=== PATIENT | female | born 1975 | race Caucasian/White ===

== ENCOUNTER 2021-02-14 15:19 | Emergency (ER) | payer BC, MEDICARE, SELFPAY ==
[2021-02-14 15:36] VITALS: BP 95/68; PULSE 87; RESP 16; TEMP 35.7; O2SAT 97
--- NOTE | 2021-02-14 16:19 | ED.GENADULT ---
HPI - General Adult General Chief complaint: Dental/Oral Stated complaint: dizziness Source: patient Mode of arrival: ambulatory Limitations: no limitations History of Present Illness HPI narrative: Patient presents for evaluation of right lower dental pain since yesterday. She had a dental extraction performed 3 days ago. She reports swelling in her gumline. She denies any fever, chills, nausea, vomiting. She tried calling her dentist and was unable to get an appointment due to the holiday. She already has percocet at home for chronic neck pain. She is requesting an antibiotic. Pain is constant, throbbing, 8/10 in severity. No trismus or problems handling secretions. Related Data Home Medications Medication Instructions Recorded Confirmed duloxetine 30 mg capsule,delayed 30 mg PO DAILY 04/18/19 02/14/21 release hydrochlorothiazide 12.5 mg tablet 12.5 mg PO DAILY 04/18/19 02/14/21 metoprolol tartrate 25 mg tablet 25 mg PO BID tablet 04/18/19 02/14/21 oxycodone 5 mg tablet 5 mg PO Q8H PRN 10/31/19 02/14/21 tapentadol 50 mg tablet 50 mg PO TID 10/31/19 02/14/21 Allergies Allergy/AdvReac Type Severity Reaction Status Date / Time droperidol Allergy Mild Unknown Verified 02/14/21 16:07 prochlorperazine Allergy Mild Unknown Verified 02/14/21 16:07 Sulfa (Sulfonamide Allergy Mild Unknown Verified 02/14/21 16:07 Antibiotics) oxymorphone Allergy Unknown Confusion Verified 02/14/21 16:07 Review of Systems Review of Systems: CONSTITUTIONAL: Denies fever, chills, or sweats. EYES: Denies visual changes, redness, or discharge. ENT: Reports right lower dental pain. Denies rhinorrhea, congestion, sore throat, or otalgia. CARDIOVASCULAR: Denies chest pain, palpitations, or edema. RESPIRATORY: Denies cough or dyspnea. GASTROINTESTINAL: Denies abdominal pain, nausea, vomiting, or diarrhea. GENITOURINARY: Denies dysuria or hematuria. SKIN: Denies rash or itching. MUSCULOSKELETAL: Denies back pain, joint pain, or myalgia. NEUROLOGIC: Denies headache, numbness, dizziness, or weakness. PSYCHIATRIC: Denies anxiety or depression. PMFSH Past Medical History Medical History (Updated 02/14/21 @ 16:23 by Natanael Willams, [facility], ) Adrenal insufficiency Anemia Asthma Cervical disc disease Hypertension IBS (irritable bowel syndrome) Surgical History Surgical History H/O knee surgery S/P insertion of spinal cord stimulator Family History Family History Mother Patient's mother is , Onset Age: 33 Other Carcinoma of colon Family history of malignant neoplasm of breast in first degree relative Family history of polycystic kidney disease Hypertension Social History Social History Smoking status: Never smoker Second hand tobacco smoke exposure: No Alcohol intake: never Exam Narrative: GENERAL: Well-appearing, well-nourished, and in no acute distress. HEAD: Normocephalic, atraumatic. EYES: PERRLA and EOMI. ENT: Nares clear, no rhinorrhea or epistaxis. Mucous membranes moist. Oropharynx without tonsillar hypertrophy exudate or other lesions. Multiple absent teeth. There is swelling in gumline of site of tooth #28. TMs pearly ortiz nonbulging NECK: Supple. No adenopathy or masses. No carotid bruits or JVD CHEST: Clear to auscultation. No respiratory distress. No wheezes rales or rhonchi HEART: Regular rate and rhythm. No murmur heard. Normal peripheral pulses. ABDOMEN: Soft, nontender, nondistended, normal active bowel sounds. EXTREMITIES: Normal range of motion. No edema. SKIN: Warm, dry, no rash. NEURO: No focal deficits. Alert and oriented x3. PSYCH: Normal mood and affect. Course Course Emergency Course: Is a 45-year-old female who presented with complaints of right lower dental pain. She has swellin
== END 2021-02-14 16:35 | disposition home or self-care (01) ==
PROVIDERS: Emergency Provider Nurse Practitioner; PCP Family Medicine
DX: K08.409 Partial loss of teeth, unspecified cause, unspecified class (principal); I10 Essential (primary) hypertension
CPT/HCPCS: 99213; G0463

== ENCOUNTER 2021-02-18 05:26 | Inpatient (IN) | payer BC, MEDICARE, SELFPAY ==
[2021-02-18] VITALS (61 sets, daily range): BP systolic 88–128; BP diastolic 42–114; PULSE 56–92; RESP 3–24; TEMP 36.6–37.9; O2SAT 85–99; BMI 27.1
--- NOTE | ~2021-02-18 | CT_ITS ---
EXAMINATION: CTA chest PE protocol DATE: 02/19/2021 16:19 INDICATION: Hypoxia. Elevated d-dimer. TECHNIQUE: Computed tomography (CT) pulmonary angiogram of the chest was performed with 100 mL Omnipa que-350 intravenous contrast. Additional 3D reconstructions utilizing coronal maximum intensity proje ction (MIP) were performed. The dose-length product was 278.55 mGy-cm. COMPARISON: None FINDINGS: Excellent contrast opacification of the pulmonary arteries. There is moderate streak artifact from de nse contrast in the superior vena cava and right atrium. Mild scattered respiratory motion artifact. No pulmonary embolism. There are scattered peripheral predominant patchy groundglass opacities throug hout both lungs with appearance suspicious for COVID pneumonia. No pulmonary edema or pleural effusio n. Heart size is normal. No pericardial effusion. Thoracic aorta is normal in caliber with no dissect ion. Cholecystectomy clips at the gallbladder fossa. Multiple surgical clips at the base of the right neck. Spinal stimulator lead which extends into the central canal the upper thoracic spine and exten ds cephalad along the posterior aspect of the cervical central canal beyond the cephalad-most image. Moderate to severe upper thoracic and lower thoracic predominant spondylosis. IMPRESSION: 1. No pulmonary embolism. 2. Bilateral patchy airspace opacities throughout both lungs with appearance suspicious for COVID pne umonia. Reviewed, dictated and finalized at location B. TRACER IMPRESSION: 1. No pulmonary embolism. 2. Bilateral patchy airspace opacities throughout both lungs with appearance phelps spicious for COVID pneumonia.
--- NOTE | ~2021-02-18 | CT_ITS ---
EXAMINATION: CT brain wo con DATE: 02/18/2021 06:40 INDICATION: Increased confusion TECHNIQUE: Computed tomography (CT) of the head was performed without intravenous contrast. The mA wa s adjusted according to patient size. Iterative reconstruction technique was employed. Exam dose: 60 5.33 mGy-cm total exam DLP. COMPARISON: 02/03/2011 CT brain FINDINGS: No intracranial mass lesion or hemorrhage or cerebrovascular accident. No midline shift or mass effect effect. Normal ventricular size. No subdural or epidural hematoma. There is mild focal mucoperiosteal thickening of the sphenoid sinuses, mainly on the left and mild so ft tissue thickening of some of the ethmoid septa. The paranasal sinuses and mastoid air cells are ot herwise unremarkable. No fracture or bone destruction of the cranial vault. IMPRESSION: No significant intracranial abnormality Reviewed, dictated and finalized at Location A. Reviewed, dictated and finalized at location A. RVISOR FUR FLOOR WORKER
--- NOTE | ~2021-02-18 | XR_ITS ---
XR chest 1V portable DATE: 02/18/2021 06:41 INDICATION: Altered mental state, stupor TECHNIQUE: Portable AP chest on 02/18/2021 at 0636 hours COMPARISON: 01/30/2017 two-view chest FINDINGS: Lower anterior cervical spine surgical fusion. Overlie the lower right cervical soft tissue s. Battery pack overlies the left upper abdomen with lead extending over the cervical spine area. Normal heart size. No pulmonary infiltrate or consolidation, pleural effusion or pulmonary vascular c ongestion or pneumothorax is detected. IMPRESSION: No active cardiopulmonary disease Reviewed, dictated and finalized at location A. ROL CLERK [employer]OD AND BEVERAGE
[2021-02-18 05:38] LABS: Glucose Point of Care 137 mg/dl (65-105)
--- NOTE | 2021-02-18 05:38 | ECG_ITS ---
Measurements Intervals [place] Rate: 88 P: 39 NM: 153 QRS: 9 QRSD: 100 T: 18 QT: 347 QTc: 420 Interpretive Statements SINUS RHYTHM INCOMPLETE RIGHT BUNDLE BRANCH BLOCK VOLTAGE CRITERIA FOR LVH BORDERLINE ST-T WAVE ABNORMALITY- ANT/INF LEADS BASELINE ARTIFACT- I, III, AVR, AVL, AVF BORDERLINE ECG Electronically Signed On 02-18-2021 16:18:02 LEAD RADIOLOGIC TECHNOLOGIST by Mikal George D.O.
[2021-02-18 06:11] LABS: INR 0.9; Lactic Acid Reflex 1.2 mmol/L (0.7-2.1); Prothrombin Time 12.2 Seconds (11.1-14.7)
[2021-02-18 06:12] LABS: Add Urine Microscopic? YES; Appearance Urine Clear (Clear); Bilirubin Urine Negative (Negative); Blood Urine Negative (Negative); Color Urine Yellow (Yellow); Glucose Urine UA Negative (Negative); Ketones Urine Negative (Negative); Leukocyte Esterase Ur Negative LEU/UL (Negative); Mucus Urine Rare /lpf; Nitrate Urine Negative (Negative); Partial Thromboplastin Time 32.6 SECONDS (22.3-36.8); Protein Urine 1+ mg/dL (Negative); RBC Urine 0-2 /hpf (0-2); Specific Grav Ur 1.015 (1.001-1.035); Squamous Epithelial Cell Urine Rare /hpf (Few); WBC Urine 0-3 /hpf
--- NOTE | 2021-02-18 06:21 | PC.NURSE ---
Pt on room air and O2 consistently dropping to 86%, repositioned patient. Pt remains in 80's. Pt placed on 2 L NC O2 at this time.
[2021-02-18 06:23] LABS: Basophils Percent Auto 0.4 % (0.2-1.2); Eosinophils Percent Auto 0.4 % (0-4.4); Hematocrit 36.8 % (37.0-47.0); Hemoglobin 11.9 g/dL (12.0-15.0); Immature Granulocyte Absolute 0.02 K/mm3 (0.00-0.031); Immature Granulocyte Percent A 0.8 % (0-0.5); Lymphocytes Percent Auto 32.1 % (18.3-44.2); Mean Corpuscular HGB Conc 32.3 g/dl (32-36); Mean Corpuscular Hemoglobin 30.1 pg (26-34); Mean Corpuscular Volume 93.2 fl (80-100); Mean Platelet Volume 12.1 fl (7.4-10.4); Monocytes Absolute Auto 0.1 K/mm3 (0.1-0.6); Monocytes Percent Auto 3.6 % (2.6-8.5); Neutrophils Absolute Auto 1.6 K/mm3 (1.3-6.7); Neutrophils Percent Auto 62.7 % (45.5-73.1); Platelet Count Result 156 k/mm3 (150-375); Red Blood Count 3.95 M/mm3 (4.2-5.4); Red Cell Distribution Width 11.8 % (11.5-14.5); White Blood Count 2.5 K/mm3 (4.5-10.0)
[2021-02-18 06:31] LABS: Alanine Aminotransferase 47 U/L (4-35); Albumin Level 3.9 g/dL (3.5-5.1); Alkaline Phosphatase 154 U/L (38-126); Anion Gap 6 mmol/L (8-16); Aspartate Amino Transferase 62 U/L (14-36); Bilirubin,Total 0.7 mg/dL (0.2-1.3); Blood Urea Nitrogen 21 mg/dL (7-17); Calcium 7.9 mg/dL (8.4-10.2); Carbon Dioxide 36 mmol/L (22-30); Chloride 94 mmol/L (98-107); Estimated CRCL calculation 68 ml/min; Estimated Glomerular Filt Rate > 60; Glucose 117 mg/dL (65-110); Potassium 3.2 mmol/L (3.4-5.0); Sodium 136 mmol/L (137-145)
--- NOTE | 2021-02-18 06:37 | PC.NURSE ---
Pt to CT scan via stretcher at this time.
[2021-02-18 06:42] LABS: Ethanol < 10 mg/dL (<10)
[2021-02-18] MEDS: SODIUM CHLORIDE 0.9% IV 1,000 ML 999 ML IV CONT (06:43)
[2021-02-18] MEDS: ACETAMINOPHEN 325 MG TABLET 650 MG PO (06:43)
[2021-02-18 06:45] LABS: Platelet Estimate Adequate (Adequate)
[2021-02-18 06:46] LABS: Atypical Lymphocytes Present; Large Platelets Present
--- NOTE | 2021-02-18 07:00 | ED.AMS ---
HPI - Altered Mental Status General Chief Complaint: Altered Mental Status Stated Complaint: possible covid exposure, increase confusion Time Seen by Provider: 02/18/21 07:00 Source: patient and EMS Mode of arrival: EMS Limitations: no limitations History of Present Illness HPI narrative: Patient is a 45-year-old female brought in by EMS due to fever, confusion x1 day. According to the patient, she had positive sick contacts, people in her household has had URI symptoms for the past few days. Patient denies being vaccinated from Covid. Patient denies any speech or visual disturbance, neck pain or stiffness, chest pain, shortness of breath, abdominal pain, urinary symptoms, nausea, vomiting or diarrhea. Patient's oxygen saturation was in the low 80s upon arrival. Related Data Home Medications Medication Instructions Recorded Confirmed duloxetine 30 mg capsule,delayed 30 mg PO DAILY 04/18/19 02/14/21 release hydrochlorothiazide 12.5 mg tablet 12.5 mg PO DAILY 04/18/19 02/14/21 metoprolol tartrate 25 mg tablet 25 mg PO BID tablet 04/18/19 02/14/21 oxycodone 5 mg tablet 5 mg PO Q8H PRN 10/31/19 02/14/21 tapentadol 50 mg tablet 50 mg PO TID 10/31/19 02/14/21 baclofen mg 02/18/21 ergocalciferol (vitamin D2) 02/18/21 ergocalciferol (vitamin D2) 02/18/21 hydrochlorothiazide 02/18/21 levothyroxine 02/18/21 meloxicam 02/18/21 methocarbamol mg 02/18/21 pregabalin 02/18/21 tapentadol [Nucynta ER] mg PO 02/18/21 trazodone 02/18/21 Allergies Allergy/AdvReac Type Severity Reaction Status Date / Time droperidol Allergy Mild Unknown Verified 02/18/21 05:40 prochlorperazine Allergy Mild Unknown Verified 02/18/21 05:40 Sulfa (Sulfonamide Allergy Mild Unknown Verified 02/18/21 05:40 Antibiotics) oxymorphone Allergy Unknown Confusion Verified 02/18/21 05:40 Review of Systems Review of Systems: All systems reviewed & are unremarkable except as noted in HPI and below Constitutional: Constitutional: Denies body ache(s), Denies excessive sweating, Denies fatigue, Denies headache(s), Denies lethargy, Denies malaise, Denies weakness and Denies weight loss Eyes: Eyes: Denies blurry vision, Denies change in vision and Denies loss of vision ENT: Denies dizziness, Denies ear discharge, Denies headache(s), Denies lip swelling, Denies epistaxis, Denies nasal congestion, Denies neck pain, Denies throat swelling and Denies tongue swelling Cardiovascular: Cardiovascular: Denies chest pain, Denies chest pain at rest, Denies chest pain with activity, Denies diaphoresis, Denies rapid heart rate, Denies edema, Denies irregular heart rhythm, Denies lightheadedness, Denies palpitations, Denies dyspnea and Denies dyspnea on exertion Respiratory: Respiratory: Denies chest congestion, Denies cough, Denies hemoptysis, Denies dyspnea and Denies dyspnea on exertion Gastrointestinal: Gastrointestinal: Denies abdominal pain, Denies melena, Denies hematochezia, Denies diarrhea, Denies nausea, Denies vomiting and Denies hematemesis Musculoskeletal: Musculoskeletal: Denies abnormal gait, Denies deformity, Denies joint swelling, Denies limited range of motion, Denies neck pain and Denies numbness Neurologic: Denies Abnormal speech present, Denies abnormal gait, Denies confusion, Denies dizziness, Denies headache(s), Denies focal weakness, Denies loss of vision, Denies numbness, Denies Other visual disturbances, Denies Sensory deficit (Neuro) and Denies weakness Psychiatric: Psychiatric: Denies confusion, Denies depression, Denies auditory hallucinations, Denies homicidal ideation and Denies suicidal ideation Endocrine: Endocrine: Denies cold intolerance, Denies excessive sweating, Denies fatigue, Denies heat intolerance and Denies palpitations Hematologic/Lymphatic: Hematologic/Lymphatic: Denies easy bleeding and Denies easy bruising Allergic/Immunologic: Allergic/Immunologic: Denies lip swelling, Denies throat swelling and Denies tongue swelling
[2021-02-18 07:05] LABS: EDCOVIDSCREEN Positive (Negative)
[2021-02-18 07:11] LABS: Alveolar/Arterial O2 Gradient 70.1 mmHg; Base Excess ABG 1.4 mEq/l (+/-2.0); Carboxyhemoglobin 0.3 % THb (0-2.0); Fractional Inspired Oxygen 32 %; Methemoglobin ABG 0.2 %THb (0-1.5); Oxygen Content ABG 14.9 %vol (16.0-22.0); Oxygen Saturation ABG 98.1 % (95.0-100.0); Oxyhemoglobin 96.3 % THb (90.0-100.0); PCO2 ABG 41.1 mmHg (35.0-45.0); PO2 FiO2 Ratio Arterial Blood 3.44 %; Reduced Hemoglobin 3.2 %THb (0-5.0); Total Hemoglobin 10.9 g/dL (12.0-18.0); pH ABG 7.419 (7.350-7.450)
[2021-02-18 07:12] LABS: Device NASAL CANNULA; Modified Allen's Test Pass; Site Drawn LEFT RADIAL
[2021-02-18 08:32] LABS: D Dimer 0.62 ug/mL (<0.48)
[2021-02-18 09:44] LABS: Amphetamine Screen Urine Negative (Negative); Barbiturate Screen Urine Negative (Negative); Benzodiazepines Screen Urine Negative (Negative); Cannabinoid Screen Urine Negative (Negative); Cocaine Screen Urine Negative (Negative); Methadone Screen Urine Negative (Negative); Opiate Screen Urine Positive (Negative); Phencyclidine Screen Urine Negative (Negative)
--- NOTE | 2021-02-18 11:46 | PM.IMHP ---
H&P: HPI History of Present Illness Date/Time: 02/18/21 11:46 Patient is a 45-year-old female with past medical history of hypertension, adrenal insufficiency, hypothyroidism, chronic neck pain with nerve stimulator, insomnia who presents to ED with complaints of confusion. Patient had symptom onset a week ago, 3 members in her household have been positive for COVID-19. This morning she did not know where she was, her confusion appears to have resolved on my evaluation. Patient is on significant pain medications and muscle relaxers. She was not vaccinated for COVID-19. She did not have COVID-19 in the past. In the ED: Patient was COVID-19 positive, patient has acute hypoxic respiratory failure O2 saturation 80s on room air. CBC showed leukopenia WBC 2.5. ABG shows PO2 98 on nasal cannula, unreported oxygen L. UDS positive for opiates which she is prescribed. UA negative. Potassium at 3.2. Chief Complaint: confusion Review of Systems Review of Systems: Constitutional: No Fever, No Chills, No Night Sweats, No Fatigue, No Malaise ENT/Mouth: No Hearing Changes, No Ear Pain, No Nasal Congestion, No Sinus Pain, No Hoarseness, No sore throat, No Rhinorrhea, No Swallowing Difficulty Eyes: No Eye Pain, No Redness, No Vision Changes Cardiovascular: No Chest Pain, No Palpitations, No Dyspnea on Exertion, No Orthopnea, No Claudication, No Edema Respiratory: No Cough, No Sputum, No Wheezing, No Shortness of Breath Gastrointestinal: No Nausea, No Vomiting, No Diarrhea, No Constipation, No Abdominal Pain, No Heartburn, No Hematochezia, No Melena Genitourinary: No Dysuria, No Urinary Frequency, No Hematuria, No Urinary Incontinence, No Urgency Musculoskeletal: No Arthralgias, No Myalgias, No Joint Swelling, No Joint Stiffness, No Back Pain Skin: No Skin Lesions, No Pruritis, No Hair Changes Neuro: Endorses confusion, weakness. No Numbness, No Paresthesias, No Loss of Consciousness, No Syncope, No Dizziness, No Headache Psych: No Anxiety/Panic, No Depression, No Insomnia Heme: No Bruising, No Bleeding Lymph: No Adenopathy Endocrine: No Polyuria, No Polydipsia, No Temperature Intolerance PMFSH Past Medical History Medical History Adrenal insufficiency Anemia Asthma Cervical disc disease Hypertension IBS (irritable bowel syndrome) Surgical History Surgical History H/O knee surgery S/P insertion of spinal cord stimulator Family History Family History (Updated 02/18/21 @ 16:40 by Josefina Granger DO) Mother Patient's mother is , Onset Age: 33 Family history of polycystic kidney disease Other Carcinoma of colon Family history of malignant neoplasm of breast in first degree relative Hypertension Social History Social History Smoking status: Never smoker Second hand tobacco smoke exposure: No Alcohol intake: never Substance use: never Substance use type: does not use Spiritual care concerns: No Meds Home Medications and Allergies Home Medications Medication Instructions Recorded Confirmed Type dicyclomine 10 mg capsule 10 mg PO TID #90 cap 04/02/19 02/18/21 Rx duloxetine 30 mg capsule,delayed 30 mg PO DAILY 04/18/19 02/18/21 History release bupropion HCl 150 mg 24 hr tablet, 150 mg PO QAM #30 tablet 09/15/20 02/18/21 Rx extended release ergocalciferol (vitamin D2) 1,250 50,000 unit PO WEEKLY #12 cap 12/10/20 02/18/21 Rx mcg (50,000 unit) capsule montelukast 10 mg tablet 10 mg PO DAILY #90 tablet 01/02/21 02/18/21 Rx penicillin V potassium 500 mg PO Q6H #40 tablet 02/14/21 02/18/21 Rx baclofen 20 mg PO TID 02/18/21 02/18/21 History cetirizine 10 mg PO DAILY 02/18/21 02/18/21 History hydrochlorothiazide 25 mg PO BID 02/18/21 02/18/21 History levothyroxine 100 mcg PO DAILY 02/18/21 02/18/21 H
--- NOTE | 2021-02-18 14:14 | PC.NURSE ---
Patient admitted - being boarded in ED.
--- NOTE | 2021-02-18 14:54 | PC.NURSE ---
called to give nurse to nurse report. nurse will call back for report.
--- NOTE | 2021-02-18 15:22 | ADMGEN ---
This patient, Diane Wise, was admitted to 3 [facility] Surg Room 310-01. Patient/family oriented to hospital policies and general routines including ID bracelet, bed and alarms, visiting hours, pain management, procedures, bathroom and other care routines, personal items, smoking policy, room service/diet, and visiting hours. Information on how to activate the Rapid Response Team has been discussed. Patient/Family are encouraged to report perceived risks to care and to ask questions if they do not understand what they are told or what they should do.
[2021-02-18] MEDS: REMDESIVIR 200 MG/NS 250 ML 200 MG/250 ML BAG 250 MG IVPB (18:09)
[2021-02-18] MEDS: POTASSIUM CHLORIDE INJ 40 MEQ in SODIUM CHLORIDE 0.9% IV 500 ML 130 MEQ IVPB (20:59)
[2021-02-18] MEDS: DICYCLOMINE HCL 10 MG CAPSULE PO (21:00)
[2021-02-18] MEDS: BACLOFEN 10 MG TABLET 20 MG PO (21:00)
[2021-02-18] MEDS: methocarbamoL 500 MG TABLET PO (21:03)
[2021-02-18] MEDS: MELOXICAM 7.5 MG TABLET PO (21:03)
[2021-02-18] MEDS: PREGABALIN (*CRX) 75 MG CAPSULE 150 MG PO (21:04)
[2021-02-18] MEDS: METOPROLOL TARTRATE 50 MG TAB PO (21:04)
[2021-02-18] MEDS: MONTELUKAST SODIUM 10 MG TABLET PO (21:04)
[2021-02-18] MEDS: traZODone HCL 50 MG TABLET PO (21:05)
[2021-02-18] MEDS: oxyCODONE/ACETAMINOPHEN (*CRX) 5-325 MG TABLET 1 TABLET PO (21:39)
[2021-02-19] VITALS: BP 109/54; PULSE 60; RESP 20; TEMP 36.1; O2SAT 95
[2021-02-19 04:00] VITALS: BP 115/79; PULSE 62; RESP 18; TEMP 36.4; O2SAT 93
[2021-02-19] MEDS: LEVOTHYROXINE SODIUM 100 MCG TABLET PO (05:33)
[2021-02-19 07:08] LABS: Basophils Percent Auto 0.2 % (0.2-1.2); Hemoglobin 10.9 g/dL (12.0-15.0); Immature Granulocyte Absolute 0.02 K/mm3 (0.00-0.031); Immature Granulocyte Percent A 0.5 % (0-0.5); Lymphocytes Absolute Auto 0.76 K/mm3 (0.9-3.2); Lymphocytes Percent Auto 18.6 % (18.3-44.2); Mean Corpuscular Hemoglobin 30.4 pg (26-34); Mean Corpuscular Volume 91.9 fl (80-100); Mean Platelet Volume 11.5 fl (7.4-10.4); Monocytes Absolute Auto 0.2 K/mm3 (0.1-0.6); Monocytes Percent Auto 4.7 % (2.6-8.5); Neutrophils Absolute Auto 3.1 K/mm3 (1.3-6.7); Platelet Count Result 143 k/mm3 (150-375); Red Blood Count 3.59 M/mm3 (4.2-5.4); Red Cell Distribution Width 11.6 % (11.5-14.5); White Blood Count 4.1 K/mm3 (4.5-10.0)
[2021-02-19 07:37] LABS: Alanine Aminotransferase 38 U/L (4-35); Albumin Level 3.4 g/dL (3.5-5.1); Alkaline Phosphatase 150 U/L (38-126); Anion Gap 9 mmol/L (8-16); Aspartate Amino Transferase 46 U/L (14-36); Bilirubin,Total 0.3 mg/dL (0.2-1.3); Blood Urea Nitrogen 14 mg/dL (7-17); Calcium 7.9 mg/dL (8.4-10.2); Carbon Dioxide 29 mmol/L (22-30); Chloride 102 mmol/L (98-107); Estimated CRCL calculation 104 ml/min; Estimated Glomerular Filt Rate > 60; Glucose 119 mg/dL (65-110); Potassium 2.9 mmol/L (3.4-5.0); Sodium 140 mmol/L (137-145)
[2021-02-19 08:00] VITALS: BP 101/67; PULSE 71; RESP 15; TEMP 36.6; O2SAT 94
[2021-02-19] MEDS: DULoxetine HCL 60 MG CAPSULE.DR PO (09:03)
[2021-02-19] MEDS: buPROPion HCL XL (24 HR) 150 MG TABCR PO (09:03)
[2021-02-19] MEDS: hydroCHLOROthiazide 25 MG TABLET PO (09:04)
[2021-02-19] MEDS: methocarbamoL 500 MG TABLET PO ×2 (09:04→15:23)
[2021-02-19] MEDS: PREGABALIN (*CRX) 75 MG CAPSULE 150 MG PO ×2 (09:04→15:22)
[2021-02-19] MEDS: BACLOFEN 10 MG TABLET 20 MG PO ×2 (09:04→15:23)
[2021-02-19] MEDS: MELOXICAM 7.5 MG TABLET PO (09:04)
[2021-02-19] MEDS: DULoxetine HCL 30 MG CAPSULE.DR PO (09:04)
[2021-02-19 09:05] VITALS: PULSE 62
[2021-02-19] MEDS: LORATADINE 10 MG TABLET PO (09:05)
[2021-02-19] MEDS: DICYCLOMINE HCL 10 MG CAPSULE PO (09:05)
[2021-02-19] MEDS: METOPROLOL TARTRATE 50 MG TAB PO (09:05)
[2021-02-19] MEDS: ENOXAPARIN 40 MG/0.4 ML SYRINGE SUB-Q (09:06)
[2021-02-19] MEDS: oxyCODONE/ACETAMINOPHEN (*CRX) 5-325 MG TABLET 1 TABLET PO ×2 (09:14→15:30)
[2021-02-19 10:29] LABS: INR 0.9; Prothrombin Time 12.5 Seconds (11.1-14.7)
[2021-02-19] MEDS: KCL 20 MEQ/SW 100 ML 100 ML 50 MEQ IVPB (11:48)
[2021-02-19 12:00] VITALS: BP 111/67; PULSE 62; RESP 14; TEMP 36.3; O2SAT 96
[2021-02-19] MEDS: POTASSIUM CHLORIDE 20 MEQ PACKET (FOR LIQUID) 40 MEQ PO (13:26)
[2021-02-19] MEDS: SODIUM CHLORIDE 0.9% IV 250 ML 100 ML IV CONT (13:29)
[2021-02-19] MEDS: PANTOPRAZOLE 40 MG TABLET PO (15:23)
[2021-02-19 16:58] LABS: Potassium 3.8 mmol/L (3.4-5.0)
--- NOTE | 2021-02-19 17:00 | PM.DS ---
DS: Admitting Diagnosis Discharge Date 02/19/2021 Admitting Diagnosis Confusion DS: Discharge Diagnosis Discharge Diagnosis (1) Pneumonia due to COVID-19 virus: Code(s): U07.1 - COVID-19; J12.82 - Pneumonia due to coronavirus disease 2019 Status: Acute (2) Hypokalemia: Code(s): E87.6 - Hypokalemia Status: Acute (3) Hypertension: Code(s): I10 - Essential (primary) hypertension Status: Acute (4) Asthma: Code(s): J45.909 - Unspecified asthma, uncomplicated Status: Acute (5) Adrenal insufficiency: Code(s): E27.40 - Unspecified adrenocortical insufficiency Status: Acute (6) Cervical disc disease: Code(s): M50.90 - Cervical disc disorder, unspecified, unspecified cervical region Status: Acute (7) S/P insertion of spinal cord stimulator: Code(s): Z96.89 - Presence of other specified functional implants Status: Acute DS: Summary Hospital Course Reason for hospitalization: 45-year-old female with past medical history of hypertension, adrenal insufficiency, hypothyroidism, chronic neck pain with nerve stimulator, insomnia who presents to ED with complaints of confusion. Patient had symptom onset a week ago, 3 members in her household have been positive for COVID-19. This morning she did not know where she was, her confusion appears to have resolved on my evaluation. Patient is on significant pain medications and muscle relaxers. She was not vaccinated for COVID-19. She did not have COVID-19 in the past. Please see H&P for details Hospital Course: In the ED, patient was COVID-19 positive with acute hypoxic respiratory failure O2 saturation 80s on room air. CBC showed leukopenia WBC 2.5. ABG shows PO2 98 on nasal cannula, unreported oxygen L. UDS positive for opiates which she is prescribed. UA negative. Potassium at 3.2. Chest x-ray was clear. Brain CT showed no significant intracranial abnormalities. CTA of the chest showed no PE but did show bilateral patchy airspace opacities throughout both lungs suspicious for COVID. White count improved. Potassium dropped to 2.9 and this had to be replaced again. LFTs were mildly elevated but improving on repeat testing. Suspected this is related to COVID. Blood pressure was low at times felt related to her hydrochlorothiazide. Was also felt that this was the etiology of her hypokalemia. She was treated with IV fluids with improvement. She was started on remdesivir and dexamethasone but she easily came off oxygen and thus these medications were not continued. She has a minimal cough. She denies any shortness of breath, chest pain or dyspnea on exertion. She was off oxygen since yesterday. She feels ready for discharge. She overall did well discharged home on 02/19/2021 Status at Discharge Cognitive/behavioral status at discharge: Stable Time Spent with Patient Time attestation: Total time spent providing and/or coordinating discharge services: 35 minutes Time spent: Greater than 30 minutes Exam Narrative: AF 97.4 111/67 62 14 96% RA Gen - NARD Chest - L>R inspiratory crackles, nml RR CV - RRR S1/S2 Abd - soft, NT/ND, +BS Ext - no pedal edema Neuro - nonfocal Skin - warm and dry DS: Data Data Completed and Pending Labs on day of discharge: Labs from last 24 hours 02/19/21 02/19/21 02/19/21 16:32 08:38 06:49 WBC RBC Hgb Hct MCV MCH MCHC RDW Plt Count MPV Immature Gran % (Auto) Neut % (Auto) Lymph % (Auto) [place] % (Auto) Eos % (Auto) Baso % (Auto) Lymph # (Auto) [place] # (Auto) Eos # (Auto) Baso # (Auto) Abs Immat Gran (auto) Absolute Neuts (auto) Absolute Nucleated RBC Nucleated RBC % PT 12.5 INR 0.9 Sodium 140 Potassium 3.8 2.9 L Chloride 102 Carbon Dioxide 29 Anion Gap 9 BUN 14 D Creatinine 0.50 L Estim Creat Clear Calc 104 Estimated GFR > 6
[2021-02-19 17:08] VITALS: BP 102/67; PULSE 62; RESP 16; TEMP 36.2; O2SAT 98
== END 2021-02-19 18:34 | disposition home or self-care (01) | DRG 177 ==
LOC: ANHED 07:17 → ANH3MEDSUR 12:14
PROVIDERS: Emergency Medicine; Student in an Organized Health Care Education/Training Program; Admitting Provider Family Medicine; Emergency Provider Emergency Medicine; PCP Family Medicine; Visit Provider Internal Medicine
DX: U07.1 COVID-19 (principal); J12.82 Pneumonia due to coronavirus disease 2019; J96.01 Acute respiratory failure with hypoxia; G93.41 Metabolic encephalopathy; E27.40 Unspecified adrenocortical insufficiency; E87.6 Hypokalemia; J45.909 Unspecified asthma, uncomplicated; I10 Essential (primary) hypertension; M50.90 Cervical disc disorder, unspecified, unspecified cervical region; Z96.89 Presence of other specified functional implants; G47.00 Insomnia, unspecified; D64.9 Anemia, unspecified; K58.9 Irritable bowel syndrome, unspecified; K21.9 Gastro-esophageal reflux disease without esophagitis; F41.8 Other specified anxiety disorders; E03.9 Hypothyroidism, unspecified
CPT/HCPCS: 36415; 36600; 51701; 70450; 71045; 71275; 80053; 80307; 81001; 81025; 82375; 82805; 82948; 83050; 83605; 83735; 84132; 85025; 85380; 85610; 85730; 87040; 87426; 87804; 93005; 96361; 96374; 99285; A9270; C9803; J1100; J1650; J3480; J7030; J7040; J7050; Q9967

== ENCOUNTER 2021-03-14 12:48 | Outpatient (CLI) | payer BC, MEDICARE, SELFPAY ==
--- NOTE | ~2021-03-14 | XR_ITS ---
XR chest 2V DATE: 03/14/2021 13:12 INDICATION: Covid 19 infection TECHNIQUE: PA and lateral views COMPARISON: 02/19/2021 CT pulmonary scan 02/18/2021 portable AP chest FINDINGS: No pulmonary infiltrate or consolidation, pleural effusion or pulmonary vascular congestion or pneumothorax is detected. Normal heart size. No hilar or mediastinal enlargement. Surgical clips are noted in the right cervical thoracic soft tissues. Status post anterior cervical s pine surgical fusion. There is a left mid back battery pack with lead extending into the cervical spi nal canal area. Surgical clips, right upper quadrant, consistent with cholecystectomy. IMPRESSION: No active cardiopulmonary disease Reviewed, dictated and finalized at location A. LLURGICAL TESTER
[2021-03-14 13:07] LABS: Hematocrit 37.6 % (37.0-47.0); Hemoglobin 12.4 g/dL (12.0-15.0); Mean Corpuscular Hemoglobin 30.7 pg (26-34); Mean Corpuscular Volume 93.1 fl (80-100); Platelet Count Result 268 k/mm3 (150-375); Red Blood Count 4.04 M/mm3 (4.2-5.4); Red Cell Distribution Width 11.9 % (11.5-14.5); White Blood Count 11.3 K/mm3 (4.5-10.0)
[2021-03-14 13:20] LABS: Alanine Aminotransferase 13 U/L (4-35); Albumin Level 4.1 g/dL (3.5-5.1); Alkaline Phosphatase 86 U/L (38-126); Anion Gap 4 mmol/L (8-16); Aspartate Amino Transferase 20 U/L (14-36); Bilirubin,Total 0.3 mg/dL (0.2-1.3); Blood Urea Nitrogen 9 mg/dL (7-17); Calcium 8.8 mg/dL (8.4-10.2); Carbon Dioxide 31 mmol/L (22-30); Chloride 103 mmol/L (98-107); Estimated Glomerular Filt Rate > 60; Glucose 113 mg/dL (65-110); Potassium 4.1 mmol/L (3.4-5.0); Sodium 138 mmol/L (137-145)
[2021-03-14 13:51] LABS: Iron 76 ug/dL (37-170)
[2021-03-14 14:07] LABS: Percent Iron Saturation 20 % (20-50)
== END 2021-03-14 12:49 | disposition home or self-care (01) ==
LOC: ANHLAB 12:55
PROVIDERS: PCP Family Medicine; Visit Provider Physician Assistant
DX: D64.9 Anemia, unspecified (principal); R79.89 Other specified abnormal findings of blood chemistry; J12.82 Pneumonia due to coronavirus disease 2019; U07.1 COVID-19
CPT/HCPCS: 36415; 71046; 80053; 82728; 83540; 83550; 85027

== ENCOUNTER 2023-11-07 11:55 | Emergency (ER) | payer OTHER, SELFPAY ==
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
--- NOTE | ~2023-11-07 | CT_ITS ---
EXAMINATION: CT cervical spine wo con DATE: 11/07/2023 13:27 INDICATION: Cervical spine tenderness. TECHNIQUE: Computed tomography (CT) of the cervical spine was performed without intravenous contrast. Automated exposure control and iterative reconstruction technique were employed. The dose-length pro duct was 287.95 mGy-cm. COMPARISON: None FINDINGS: There is hypolordosis of the cervical spine. There are changes of anterior fusion procedure at C2-C3 with healed interbody bone graft and anterior plate and screws. There are changes of anteri or fusion procedure from C4 to C7 with healed interbody bone graft and anterior plate and screws. The re are changes of posterior fusion procedure at C3-C4 with pedicle screws. Vertebral body heights are normal. There is severely decreased disc height at T1-T2. Epidural electrodes are noted. The followi ng disc levels are specifically discussed: C2-C3: There is mild left uncovertebral joint hypertrophy. There is mild bilateral facet joint hypert rophy. There is mild left neural foraminal stenosis. There is no central canal stenosis. C3-C4: There is moderate bilateral uncovertebral joint osteoarthritis. There is moderate left facet j oint osteoarthritis. There is ankylosis of right facet joint with moderate hypertrophy. There is mild bilateral neural foraminal stenosis. There is no central canal stenosis. C4-C5: There is mild bilateral uncovertebral joint hypertrophy. There is mild bilateral facet joint h ypertrophy. There is mild bilateral neural foraminal stenosis. There is no central canal stenosis. C5-C6: There is moderate bilateral uncovertebral joint hypertrophy. There is moderate bilateral facet joint hypertrophy. There is mild bilateral neural foraminal stenosis. There is mild central canal st enosis. C6-C7: There is no uncovertebral joint osteoarthritis. There is moderate bilateral facet joint hypert rophy. There is mild bilateral neural foraminal stenosis. There is mild central canal stenosis. C7-T1: There is no uncovertebral joint osteoarthritis. There is severe bilateral facet joint osteoart hritis. There is mild bilateral neural foraminal stenosis. There is no central canal stenosis. IMPRESSION: 1. Mild cervical spondylosis. 2. Anterior fusion procedure at C2-C3. Posterior fusion procedure at C3-C4. Anterior fusion procedure from C4 to C7. Reviewed, dictated and finalized at location A. IMPRESSION: 1. Mild cervical spondylosis. 2. Anterior fusion procedure at C2-C3. Posterior fusion procedure at C3-C4. Ant erior fusion procedure from C4 to C7.
[2023-11-07 11:55] VITALS: BP 116/83; PULSE 84; RESP 16; TEMP 36.7; O2SAT 98
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
--- NOTE | 2023-11-07 13:15 | PC.NURSE ---
Pt off floor for imaging. Will administer ordered meds when pt returns.
--- NOTE | 2023-11-07 13:41 | PC.NURSE ---
Pt has adverse reaction to oxymorphone. Oxycodone ordered by . This RN spoke with pharmacist Williams who states that pt is ok to receive ordered oxycodone. Pt also reports previously taking oxycodone with no issues.
[2023-11-07] MEDS: oxyCODONE/ACETAMINOPHEN (*CRX) 5-325 MG TABLET 1 TABLET PO (13:45)
[2023-11-07 14:27] VITALS: BP 115/88; PULSE 66; RESP 12; TEMP 36.4; O2SAT 97
== END 2023-11-07 14:29 | disposition home or self-care (01) ==
PROVIDERS: Emergency Provider Preventive Medicine Aerospace Medicine; PCP Family Medicine
DX: M54.2 Cervicalgia (principal); M54.50 Low back pain, unspecified; S80.812A Abrasion, left lower leg, initial encounter; V49.40XA Driver injured in collision with unspecified motor vehicles in traffic accident, initial encounter; I10 Essential (primary) hypertension; E03.9 Hypothyroidism, unspecified; J45.909 Unspecified asthma, uncomplicated; F41.9 Anxiety disorder, unspecified; F32.A Depression, unspecified; E27.40 Unspecified adrenocortical insufficiency; Z98.1 Arthrodesis status
CPT/HCPCS: 72125; 72128; 72131; 73590; 99284; A9270

== ENCOUNTER 2024-05-07 16:32 | Outpatient (CLI) | payer OTHER, MEDICARE, SELFPAY ==
[2024-05-07 17:51] LABS: Basophils Percent Auto 0.3 % (0.2-1.2); Eosinophils Absolute Auto 0.2 K/mm3 (0-0.3); Eosinophils Percent Auto 1.7 % (0-4.4); Hematocrit 34.1 % (37.0-47.0); Hemoglobin 10.6 g/dL (12.0-15.0); Immature Granulocyte Absolute 0.03 K/mm3 (0.00-0.031); Immature Granulocyte Percent A 0.3 % (0-0.5); Lymphocytes Absolute Auto 1.42 K/mm3 (0.9-3.2); Lymphocytes Percent Auto 16.1 % (18.3-44.2); Mean Corpuscular HGB Conc 31.1 g/dl (32-36); Mean Corpuscular Volume 86.8 fl (80-100); Mean Platelet Volume 11.2 fl (7.4-10.4); Monocytes Absolute Auto 0.6 K/mm3 (0.1-0.6); Monocytes Percent Auto 6.4 % (2.6-8.5); Neutrophils Absolute Auto 6.6 K/mm3 (1.3-6.7); Neutrophils Percent Auto 75.2 % (45.5-73.1); Platelet Count Result 307 k/mm3 (150-375); Red Blood Count 3.93 M/mm3 (4.2-5.4); Red Cell Distribution Width 12.8 % (11.5-14.5); White Blood Count 8.8 K/mm3 (4.5-10.0)
[2024-05-07 18:09] LABS: Alanine Aminotransferase 18 U/L (6-35); Albumin Level 4.1 g/dL (3.5-5.1); Alkaline Phosphatase 81 U/L (38-126); Anion Gap 8 mmol/L (4-12); Aspartate Amino Transferase 25 U/L (14-36); Bilirubin,Total 0.5 mg/dL (0.2-1.3); Blood Urea Nitrogen 9 mg/dL (7-17); Calcium 8.5 mg/dL (8.4-10.2); Carbon Dioxide 31 mmol/L (22-30); Chloride 101 mmol/L (98-107); Estimated Glomerular Filt Rate > 60; Glucose 88 mg/dL (65-110); Potassium 3.4 mmol/L (3.4-5.0); Sodium 140 mmol/L (137-145)
--- OUTSIDE RECORDS SUMMARY | 2024-05-07 18:35 | XMS_ITS | Encounter Summary ---
Author Organization [facility] Address [address] [address] Care Team Providers Care Dredge Engineer Name Role Phone Charmaine Dykes MD Primary Care Provider [phone] Charmaine Dykes MD Primary Care Provider [phone] Charmaine Dykes MD Primary Care Provider [phone] MD Unavailable [phone] Encounter Details Date Type Department Care Team (Late st Contact Info) Description 12/29/2015 Orders Only [facility] ProviderJaunita MD [address] [place] [id number] Social History Tobacco Use Types Packs/Day Years Used Date Smoking Tobacco: Never Assessed Comments Unknown Sex and Gender Information Value Date Recorded Sex Assigned at Not on file Legal Sex Female 8:40 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 Historical Provider [facility] RANGEL VELASCO Final Result documented in this encounter Visit Diagnoses Not on filedocumented in this encounter Care Teams Dredge Engineer Relationship Specialty Start Date End Date Charmaine Dykes MD PCP - General 05/14/16 05/25/17 Charmaine Dyeks MD PCP - General 04/03/13 05/13/16 Charmaine Dykes MD PCP - General 05/26/[address] [place] [address] [address] Consulting Physician Endocrinology Diabetes & Metabolism 06/01/23 documented as of this encounter
--- OUTSIDE RECORDS SUMMARY | 2024-05-07 18:35 | XMS_ITS | Encounter Summary ---
Author Organization [facility] Address [address] [place] [address] Care Team Providers Care Folder Operator Name Role Phone Charmaine Dykes MD Primary Care Provider [phone] Encounter Details Date Type Department Care Team (Late st Contact Info) Description 07/09/[address] [facility] Maternal and Ground Floor [facility] [address] [place] [phone] Derrick Farmer MD [address] [place] [address] Social History Tobacco Use Types Packs/Day Years Used Date Smoking Tobacco: Never Assessed Comments Unknown Sex and Gender Information Value Date Recorded Sex Assigned at Not on file Legal Sex Female 3:30 AM BARMAID Gender Identity Not on file Sexual Orientation Not on file documented as of this encounter Plan of Treatment Not on file documented as of this encounter Visit Diagnoses Not on filedocumented in this encounter Care Teams Folder Operator Relationship Specialty Start Date End Date Charmaine Dykes MD [address] [place] [address] PCP - General Family Practice 10/06/12 documented as of this encounter
--- OUTSIDE RECORDS SUMMARY | 2024-05-07 18:35 | XMS_ITS | Encounter Summary ---
Author Organization [facility] Address 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
--- OUTSIDE RECORDS SUMMARY | 2024-05-07 18:35 | XMS_ITS | Encounter Summary ---
Author Organization [facility] Address [address] [place] [address] Care Team Providers Care Precinct Captain Name Role Phone Charmaine Dykes MD Primary Care Provider [phone] Encounter Details Date Type Department Care Team (Late st Contact Info) Description 06/26/2004 Outpatient Historical [facility] Maternal and Ground Floor [facility] [address] [facility] [place] [address] Eliazar Bermudez MD NO ADDRESS ON FILE Social History Tobacco Use Types Packs/Day Years Used Date Smoking Tobacco: Never Assessed Comments Unknown Sex and Gender Information Value Date Recorded Sex Assigned at Not on file Legal Sex Female 3:30 AM TREAD CUTTER Gender Identity Not on file Sexual Orientation Not on file documented as of this encounter Plan of Treatment Not on file documented as of this encounter Visit Diagnoses Not on filedocumented in this encounter Care Teams Precinct Captain Relationship Specialty Start Date End Date Charmaine Dykes MD [address] [place] [address] PCP - General Family Practice 10/06/12 documented as of this encounter
--- OUTSIDE RECORDS SUMMARY | 2024-05-07 18:35 | XMS_ITS | Clinical Summary ---
Author Organization [facility] Address [address] [place] [address] Phone Care Team Providers Care Machine Ironer Name Role Phone Charmaine Dykes MD Primary Care Provider [phone] Allergies Active Allergy Reactions Criticality Noted Date Comments Droperidol Other (See Comments) 04/13/2011 Prochlorperazine 07/23/2003 Sulfa (Sulfonamide Antibiotics) 09/2003 Medications hydrochlorothia zide 25 mg Oral tabletIndicatio ns:Nonspecific abnormal results of other endocrine function study Take 25 mg by mouth daily. Active labetalol (NORMODYNE) 100 mg Oral tabletIndicatio ns:Nonspecific abnormal results of other endocrine function study Take 100 mg by mouth 2 times daily. Active gabapentin (NEURONTIN) 600 mg Oral tabletIndicatio ns:Nonspecific abnormal results of other endocrine function study Take 600 mg by mouth. 1 int he am 2 in the afternoon and 2 HS Active carisoprodol (SOMA) 350 mg Oral tabletIndicatio ns:Nonspecific abnormal results of other endocrine function study Take 350 mg by mouth 3 times daily. Active tapentadol (NUCYNTA) 100 mg Oral tabletIndicatio ns:Nonspecific abnormal results of other endocrine function study Take 100 mg by mouth 4 times daily. Active methadone (DOLOPHINE) 10 mg Oral TabIndications: Nonspecific abnormal results of other endocrine function study Take 30 mg by mouth 4 times daily. Active norethindrone, Contraceptive, (JOLIVETTE) 0.35 mg Oral TabIndications: Nonspecific abnormal results of other endocrine function study Take by mouth. Active baclofen (LIORESAL) 10 mg Oral tablet Take 10 mg by mouth 3 times daily as needed. Active levofloxacin (LEVAQUIN) 500 mg Oral tablet Take 500 mg by mouth daily. For 10 days Active predniSONE (DELTASONE) 10 mg Oral tablet Take 10 mg by mouth daily. Take 5 tabs for 2 days,4 tabs for 2 day, 3 tabs for 3 days, 2 tabs for 2 days, 1 tab for 2 days Active levothyroxine (SYNTHROID) 100 mcg Oral tablet Take 100 mcg by mouth daily picking supervisor. Active montelukast (SINGULAIR) 10 mg Oral tablet Take 10 mg by mouth daily at bedtime. Active cetirizine (ZYRTEC) 10 mg Oral tablet Take 10 mg by mouth daily. Active ergocalciferol (VITAMIN D2) 50,000 unit Oral capsule Take 50,000 Units by mouth every 7 days. Active Active Problems Problem Noted Date Diagnosed Date Pituitary microadenoma 07/26/2011 Adrenal insufficiency 06/23/2011 Unspecified hypothyroidism 04/16/2011 Nonspecific abnormal results of other endocrine function study 04/13/2011 Unspecified asthma(493.90) 07/23/2003 Anemia, unspecified 07/23/2003 Irritable bowel syndrome 07/23/2003 Family history of polycystic kidney 07/23/2003 Immunizations Immunization Administration Dates Next Due (TDVAX)(7 YRS UP) TETANUS AN D DIPHTHERIA TOXOIDS, ADSORBED (2 LF OF TETANUS TOXOID AND 2 LF OF DIPHTHERIA TOXOID), 0.5ML (PF), IM 02/14/1997 Influenza Vaccine Split 3+ Yrs IM 02/14/2001 Family History Medical History Relation Name Comments Other Other Relation Name Status Comments Other Social History Tobacco Use Types Packs/Day Years Used Date Smoking Tobacco: Never Alcohol Use Standard Drinks/Week Comments No 0 (1 standard drink = 0.6 oz pur e alcohol) Comments No Sex and Gender Information Value Date Recorded Sex Assigned at Not on file 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 Female 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 Gender Identity Not on file Sexual Orientation Not on file Occupation Industry Job Start Date Job End Date Not on file Not on file Not on file Not on file Last Filed Vital Signs Vital Sign Reading Time Taken Comments Blood Pressure 110/80 10/04/2012 11:48 AM CDT Pulse 80 10/04/2012 11:48 AM CDT Temperature 36.4 C (97.5 F) 06/15/2011 9:35 AM CDT Respiratory Rate 16 07/26/2011 4:10 PM CDT Oxygen Saturation - - Inhaled Oxygen Concentration - - Weight 64.9 kg (143 lb) 10/04/2012 11:48 AM CDT Height 154.9 cm (5' 1 ) 10/04/2012 11:48 AM CDT Body Mass Index 27.02 10/04/2012 11:48 AM CDT Plan of Treatment Health Maintenance Due Date Last Done Comments HEPATITIS B VACCINES (1 of 3 - 19+ 3-dose series) 1996 DTAP/TDAP/TD VACCINES (1 - Tdap) 02/15/1997 02/14/18 98 PAP SMEAR 1998 CERVICAL CANCER SCREENING 10/04/2007 HPV/Cotest 10/04/2007 PAP SMEAR 10/04/2007 BREAST CANCER SCREENING 2017 COLORECTAL SCREENING 2022 Colorectal Cancer Screening 2022 FIT-DNA Q 3 years 2022 FIT/FOBT Q 1 year 2022 Flex Sig/CT Colonography Q 5 years 2022 INFLUENZA VACCINE (#1) 2023 02/14/2001 HPV VACCINES Aged Out No longer eligi ble based on patient's age to complete this topic [place] [address] [place] [address] [facility] BLUE ACCESS/TRUE BLUE PPO Care Teams Machine Ironer Relationship Specialty Start Date End Date Charmaine Dykes MD [address] [place] [address] PCP - General Family Practice 10/06/12
--- OUTSIDE RECORDS SUMMARY | 2024-05-07 18:35 | XMS_ITS | Encounter Summary ---
Author Organization [facility] Address 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 Gender Identity Not on file Sexual Orientation Not on file documented as of this encounter Plan of Treatment Not on file documented as of this encounter Procedures Procedure Name Priority Date/Time Associated Diagnosis Comments CBC WITH DIFFERENTIAL Routine 07/08/2004 2:58 PM CDT CBC WITH DIFFERENTIAL Routine 07/08/2004 2:58 PM CDT URINALYSIS W/REFLEX MICROSCOPIC Routine 07/08/2004 2:58 PM CDT documented in this encounter Results * (ABNORMAL) URINALYSIS (07/08/2004 2:58 PM CDT) COLOR UA Yellow INTERFACE SYSTEM CLARITY UA Clear Clear INTERFACE SYSTEM SPECIFIC GRAVITY UA 1.005 1.001 - 1.035 INTERFACE SYSTEM PH UA 7.0 5.0 - 8.0 INTERFACE SYSTEM LEUKOCYTE ESTERASE UA 1+(A) Negative INTERFACE SYSTEM NITRITE UA Negative Negative INTERFACE SYSTEM PROTEIN UA Negative Negative INTERFACE SYSTEM GLUCOSE UA Negative Negative INTERFACE SYSTEM KETONES UA Negative Negative INTERFACE SYSTEM UROBILINOGEN UA <1 <1 EU INTE RFACE SYSTEM BILIRUBIN UA Negative Negative INTERFA CE SYSTEM BLOOD UA Negative Negative INTERFACE SYSTEM WBC UA 4 0 - 5 /HPF INTERFACE SYSTEM RBC UA <1 0 - 4 /HPF INTERFACE SYSTEM BACTERIA UA 1+(A) None Seen /HPF INTERFACE SYSTEM EPITHELIAL CELLS, URINE 2-5 /HPF INTERFACE SYSTEM 07/08/2004 2:58 PM CDT Enrique Brady MD URINE ORDERABLES Final Result Performing Organization Address [facility] Phone Number INTERFACE SYSTEM Refer to clinic/hospital department * (ABNORMAL) CBC WITH DIFFERENTIAL (07/08/2004 2:58 PM CDT) NEUTROPHILS 71(H) 45 - 70 % INTERFAC E SYSTEM LYMPHOCYTES 20 16 - 45 % INTERFAC E SYSTEM MONOCYTES 8 3 - 13 % INTERFACE SYSTEM EOSINOPHILS 1 0 - 7 % INTERFAC E SYSTEM BASOPHILS 0 0 - 2 % INTERFACE SYSTEM NEUTROPHIL ABSOLUTE 6.57 1.90 - 7.00 K/uL INTERFACE SYSTEM LYMPHOCYTE ABSOLUTE 1.87 0.70 - 4.50 K/uL INTERFACE SYSTEM MONOCYTE ABSOLUTE 0.73 0.10 - 1.30 K/uL INTERFACE SYSTEM EOSINOPHIL ABSOLUTE 0.07 0.00 - 0.70 K/uL INTERFACE SYSTEM BASOPHILS ABSOLUTE 0.02 0.00 - 0.20 K/uL INTERFACE SYSTEM 07/08/2004 2:58 PM CDT Enrique Brady MD HEMATOLOGY ORDERABLES Final Result Performing Organization Address [facility] Co de Phone Number INTERFACE SYSTEM Refer to clinic/hospital department * (ABNORMAL) CBC WITH DIFFERENTIAL (07/08/2004 2:58 PM CDT) WBC 9.3 4.0 - 9.8 K/uL INTERFACE SYSTEM RBC 4.26 3.90 - 4.90 M/uL INTERFACE SYSTEM HEMOGLOBIN 10.7(L) 11.8 - 14.8 g/dL INTERFACE SYSTEM HEMATOCRIT 34.1(L) 35.5 - 44.0 % INTERFACE SYSTEM MCV 80.0(L) 82.0 - 99.0 fL INTERFACE SYSTEM MCH 25.1(L) 27.2 - 32.6 pg INTERFACE SYSTEM MCHC 31.4(L) 31.5 - 35.5 % INTERFACE SYSTEM RDW 13.6 11.5 - 14.5 % INTERFACE SYSTEM RDW-STDEV 38.8 37.1 - 48.7 fL INTERFACE SYSTEM PLATELETS 217 140 - 350 K/uL INTERFACE SYSTEM MPV 11.1 9.3 - 12.4 fL INTERFACE SYSTEM 07/08/2004 2:58 PM CDT us Enrique Brady MD HEMATOLOGY ORDERABLES Final Result INTERFACE SYSTEM Refer to clinic/hospital department documented in this encounter Visit Diagnoses Diagnosis Other current maternal conditions classifiable elsewhere, antepartum- Primary documented in this encounter Care Teams Cadet Deck Relationship Specialty Start Date End Date Charmaine Dykes MD [address] [place] [address] PCP - General Family Practice 10/06/12 documented as of this encounter
--- OUTSIDE RECORDS SUMMARY | 2024-05-07 18:35 | XMS_ITS | Clinical Summary ---
Author Organization [facility] Address [address] [place] [address] Care Team Providers Care Analytical Consultant Name Role Phone Charmaine Dykes MD Primary Care Provider [phone] Source Comments [facility],non-owned Affiliates and Associated Physician Practices is amultiple site organization consisting of ambulatory clinics and hospital sitesin [place], [place], [place] and [place]. This disclosure is being madepursuant to the Care Everywhere program and may not contain all information available regarding this patient. Last updated 17.[facility] Allergies Active Allergy Reactions Criticality Noted Date Comments Droperidol Other High 02/24/2011 Dystonic reaction other [Other] Rash Medium Received name: Sulfa (sulfonamide Antibiotics) Oxymorphone Other Low 07/26/2017 Nightmares Prochlorperazine Itching,Other 02/24/2011 Dystonic reaction Sulfa Drugs Cross Reactors [Other] Urticaria Medium 02/24/2011 Received name: Sulfa Drugs Cross Reactors Vancomycin Unknown 07/26/2017 Medications * Be aware that medications may not be up to date on this document. Alwaysverify current medications with the patient. Medication Sig Dispensed Refills Start Date End Date Status traZODone (DESYREL) 50 MG tablet Take 1 tablet by mouth at bedtime 0 05/23/2017 Active NUCYNTA ER 50 MG tablet Take 200 mg by mouth 2 times daily 0 03/02/2017 Active pantoprazole EC (PROTONIX) 40 MG tablet Take 1 tablet by mouth once daily 2 05/27/2017 Active oxyCODONE-acetaminophe n (PERCOCET) 7.5-325 MG tablet Take 1-2 tablets by mouth 3 times daily 0 06/14/2017 Active montelukast (SINGULAIR) 10 MG tablet Take 1 tablet by mouth at bedtime 2 06/04/2017 Active metoprolol tartrate (LOPRESSOR) 25 MG tablet Take 25 mg by mouth 2 times daily 08/20/2016 Active meloxicam (MOBIC) 15 MG tablet Take 15 mg by mouth Taking 0.5 tablet twice daily. 06/18/2017 Active hydroCHLOROthiazide (HYDRODIURIL) 25 MG tablet Take 12.5 mg by mouth once daily Active gabapentin (NEURONTIN) 600 MG tablet Take 5 Tabs by mouth Daily. 1 in the am2 in the afternoon2 nightly Active ergocalciferol (DRISDOL) 58744 UNITS capsule Take 50,000 Units by mouth every 7 days Active DULoxetine (CYMBALTA) 60 MG capsule Take 1 capsule by mouth once daily 0 05/23/2017 Active DULoxetine (CYMBALTA) 30 MG capsule Take 1 capsule by mouth once daily 0 05/23/2017 Active dicyclomine (BENTYL) 10 MG capsule Take 1 capsule by mouth once daily 2 06/16/2017 Active carisoprodol (SOMA) 350 MG tablet Take 350 mg by mouth 3 times daily as needed Active baclofen (LIORESAL) 10 MG tablet Take 1 tablet by mouth 3 times daily as needed 0 06/13/2017 Active PROAIR HFA 108 (90 BASE) MCG/ACT inhaler Inhale 2 puffs by mouth every 4 hours as needed 0 04/27/2017 Active methocarbamol (ROBAXIN) 500 MG tablet Take 500 mg by mouth 3 times daily 09/19/2019 Active LYRICA 100 MG capsule Take 100 mg by mouth 3 times daily 02/21/2019 Active aspirin-acetaminophen- caffeine 250-250-65 MG tablet Take 1 tablet by mouth Active buPROPion XL 24hr (WELLBUTRIN-XL) 150 MG tablet Take 150 mg by mouth every morning 03/03/2021 Active ibuprofen (MOTRIN) 200 MG tablet Take 200 mg by mouth as needed Active hydrocortisone (Cortef) 10 MG tabletIndications:Adre nal insufficiency (HCC) Take 1 (one) tablet by mouth 2 times daily 180 tablet 3 11/24/2021 Active levothyroxine (Synthroid) 100 MCG tabletIndications:Othe r specified hypothyroidism TAKE 1 TABLET BY MOUTH ONCE DAILY 90 tablet 3 09/19/2023 Active Active Problems Problem Noted Date Diagnosed Date Adrenal insufficiency 07/14/2017 Other specified hypothyroidism 07/14/2017 Immunizations Name Administration Dates Next Due INFLUENZA VACCINE, TRIV. (AF LURIA, FLUZONE TRIVALENT; 6MO+) (IIV3) 02/14/2001 INFLUENZA VACCINE, QUADR. (F LUZONE; FLULAVAL; FLUARIX; AFLURIA QUADRIVALENT; 6MO+), 0.5 ML (IIV4) 11/24/2018 Td (Adult), 2 Lf Tetanus Toxoid, Adsorbed, Pf iNFLUENZA VACCINE, RECOM-ABURTO, QUADR. (FLUBLOCK QUADRIVALENT; 18Y+) (RIV4) 03/20/2021,11/30/2019 Social History Tobacco Use Types Packs/Day Years Used Date Smoking Tobacco: Never Smokeless Tobacco: Never Alcohol Use Standard Drinks/Week Comments No 0 (1 standard drink = 0.6 oz pur e alcohol) Sex and Gender Information Value Date Recorded Sex Assigned at Not on file Gender Identity Not on file Sexual Orientation Not on file Last Filed Vital Signs Vital Sign Reading Time Taken Comments Blood Pressure 100/62 11/24/2021 4:20 PM CDT Pulse 93 11/24/2021 4:20 PM CDT Temperature 37.1 C (98.8 F) 11/24/2021 4:20 PM CDT Respiratory Rate 16 11/24/2021 4:20 PM CDT Oxygen Saturation 95% 11/24/2021 4:20 PM CDT Inhaled Oxygen Concentration - - Weight 67.6 kg (149 lb) 11/24/2021 4:20 PM CDT Height 154.9 cm (5' 1 ) 11/24/2021 4:20 PM CDT Body Mass Index 28.15 11/24/2021 4:20 PM CDT Plan of Treatment Health Maintenance Due Date Last Done Comments COLOGUARD (AGES 45-75) - COLON CA SCREENING 1977 COLON MONITORING 1977 COLONOSCOPY - COLON CA SCREENING 1977 CT COLONOGRAPHY - COLON CA SCREENING 1977 Colorectal Cancer Screening 1977 FIT - COLON CA SCREENING 1977 FLEX SIG - COLON CA SCREENING 1977 MEDICARE AWV 12 MONTHS 1977 Opioid Medication Agreement - Annual 1977 Opioid Medication Urine Drug Screening 1977 PAP SMEAR 1977 HIV SCREENING 1992 HEPATITIS C SCREENING 09/29/1995 HEPATITIS B VACCINE (1 of 3 - 19+ 3-dose series) 1996 DTAP/TDAP/TD VACCINES (1 - Tdap) 02/15/1997 02/14/1997 MAMMOGRAM 05/22/2015 05/21/2013 SCREENING FOR DIABETES 03/20/2021 8, 03/09/2016, 03/09/2016, Additional history exists COVID-19 VACCINE (2023- season) 2023 INFLUENZA VACCINE (#1) 2023 2, 11/30/2019, 11/24/2018, Additional history exists DEPRESSION SCREENING 02/15/2024 LIPID TESTING 04/28/2025 04/28/2020, 11/15/2018 ZOSTER VACCINE (1 of 2) 10/04/2027 HIB VACCINE Aged Out No longer eligi ble based on patient's age to complete this topic HPV VACCINE Aged Out No longer eligi ble based on patient's age to complete this topic MENINGOCOCCAL (Group B) VACCINE SHARED DECISION-MAKING Aged Out No longer eligible based on patient's age to complete this topic MENINGOCOCCAL GROUPS A/C/Y/W VACCINE Aged Out No longer eligible based on patient's age to complete this topic PNEUMOCOCCAL VACCINE Aged Out No long er eligible based on patient's age to complete this topic Procedures Procedure Name Priority Date/Time Associated Diagnosis Comments COMPREHENSIVE METABOLIC PANEL Routine 07/14/2017 1:01 PM CDT Adrenal insufficiency from Last 3 Months or Most Recently Relevant to Health Maintenance Results * (ABNORMAL) COMPREHENSIVE METABOLIC PANEL (07/14/2017 1:01 PM CDT) BUN 11 7 - 26 mg/dL 07/14/2017 1:40 PM CDT [facility] Creatinine 0.7 0.6 - 1.2 mg/dL 07/14/2017 1:40 PM CDT [facility] Sodium 136 136 - 145 mmol/L 07/14/2017 1:40 PM [facility] Potassium 3.1(L) 3.5 - 4.5 mmol/L 07/14/2017 1:40 PM [facility] Chloride 95(L) 98 - 107 mmol/L 07/14/2017 1:40 PM [facility] CO2 34(H) 22 - 29 mmol/L 07/14/2017 1:40 PM [facility] Glucose 92 70 - 115 mg/dL 07/14/2017 1:40 PM [facility] Calcium 9.5 8.4 - 10.2 mg/dL 07/14/2017 1:40 PM [facility] Protein Total 7.8 6.0 - 8.3 g/dL 07/14/2017 1:40 PM [facility] Albumin 4.2 3.4 - 5.0 g/dL 07/14/2017 1:40 PM [facility] Bilirubin Total 0.5 0.2 - 1.2 mg/dL 07/14/2017 1:40 PM [facility] Alkaline Phosphatase 89 40 - 150 Units/L 07/14/2017 1:40 PM [facility] ALT 22 0 - 55 Units/L 07/14/2017 1:40 PM [facility] AST 33 5 - 34 Units/L 07/14/2017 1:40 PM [facility] Anion Gap 10 8 - 18 07/14/2017 1:40 PM [facility] BUN/Creatinine Ratio 16 7 - 23 07/14/2017 1:40 PM [facility] Osmolality Calculated 281 270 - 300 mOsm/kg 07/14/2017 1:40 PM [facility] Albumin/Globulin Ratio 1.2 1.1 - 2.3 07/14/2017 1:40 PM [facility] eGFR >60 >60 mL/min/1.7 3 m2 07/14/2017 1:40 PM [facility] Blood BLOOD SPECIMEN / Unknown Lab Venipuncture / Unknown 07/14/2017 1:01 PM CDT 07/14/2017 1:11 PM T Thaddeus Louie MD LAB - CHEMISTRY ORDE [facility] [address] [place] [address], [facility] [phone] from Last 3 Months or Most Recently Relevant to Health Maintenance Care Teams Analytical Consultant Relationship Specialty Start Date End Date Charmaine Dykes MD [address] [place] [address] PCP - General 05/31/17
--- OUTSIDE RECORDS SUMMARY | 2024-05-07 18:35 | XMS_ITS | Encounter Summary ---
Author Organization [employer] [facility] Address [address] [place] [address] Care Team Providers Care Shake Cutter Name Role Phone Charmaine Dykes MD Primary Care Provider Encounter Details Date Type Department Care Team (Late st Contact Info) Description 07/23/2003 Outpatient Historical [facility] Internal Medicine [id number] [place] [address] [address] [place] [id number] Laurie Sargent MD NO ADDRESS ON FILE Social History Tobacco Use Types Packs/Day Years Used Date Smoking Tobacco: Never Assessed Comments Unknown Sex and Gender Information Value Date Recorded Sex Assigned at Not on file 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 Gender Identity Not on file Sexual Orientation Not on file documented as of this encounter Last Filed Vital Signs Vital Sign Reading Time Taken Comments Blood Pressure 134/82 07/23/2003 11:15 AM CDT Pulse - - Temperature - - Respiratory Rate - - Oxygen Saturation - - Inhaled Oxygen Concentration - - Weight 52.6 kg (116 lb) 07/23/2003 11:15 AM CDT Height 154.9 cm (5' 1 ) 07/23/2003 11:15 AM CDT Body Mass Index 21.92 07/23/2003 11:15 AM CDT documented in this encounter Plan of Treatment Not on file documented as of this encounter Visit Diagnoses Not on filedocumented in this encounter Care Teams Shake Cutter Relationship Specialty Start Date End Date Charmaine Dykes MD [address] [place] [address] PCP - General Family Practice 10/06/12 documented as of this encounter
--- OUTSIDE RECORDS SUMMARY | 2024-05-07 18:35 | XMS_ITS | Encounter Summary ---
Author Organization [employer] [facility] Address [address] [place] [address] Care Team Providers Care Physiotherapy Assistant Name Role Phone Charmaine Dykes MD Primary Care Provider Encounter Details Date Type Department Care Team (Late st Contact Info) Description 07/03/2004 Outpatient Historical [facility] PATIENT IN A BED Derrick Farmer MD [address] [place] [phone] Enrique Brady MD [address] [place] [phone] OTHER CURR COND-ANTEPARTUM (Primary Dx) Social History Tobacco Use Types Packs/Day Years Used Date Smoking Tobacco: Never Assessed Comments Unknown Sex and Gender Information Value Date Recorded Sex Assigned at Not on file 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 Gender Identity Not on file Sexual Orientation Not on file documented as of this encounter Plan of Treatment Not on file documented as of this encounter Procedures Procedure Name Priority Date/Time Associated Diagnosis Comments CBC WITH DIFFERENTIAL Routine 07/03/2004 12:25 PM CDT CBC WITH DIFFERENTIAL Routine 07/03/2004 12:25 PM CDT FIBRONECTIN Routine 07/03/2004 12: 25 PM CDT URINALYSIS W/REFLEX MICROSCOPIC Routine 07/03/2004 11:48 AM CDT documented in this encounter Results * (ABNORMAL) FIBRONECTIN (07/03/2004 12:25 PM CDT) FIBRONECTIN Positive( A) Negative INTERFACE SYSTEM Comment:Results called to An castro at 07/03/2004 1:18 PM_ and read back verified. GESTATIONAL AGE 30.0 Weeks INTE RFACE SYSTEM 07/03/2004 12:2 5 PM CDT Enrique Brady MD BODY FLUIDS AND STOOLS Final Result Performing Organization Address [facility] de Phone Number INTERFACE SYSTEM Refer to clinic/hospital department * (ABNORMAL) CBC WITH DIFFERENTIAL (07/03/2004 12:25 PM CDT) NEUTROPHILS 73(H) 45 - 70 % INTERFAC E SYSTEM LYMPHOCYTES 19 16 - 45 % INTERFAC E SYSTEM MONOCYTES 7 3 - 13 % INTERFACE SYSTEM EOSINOPHILS 1 0 - 7 % INTERFAC E SYSTEM BASOPHILS 0 0 - 2 % INTERFACE SYSTEM NEUTROPHIL ABSOLUTE 7.02(H) 1.90 - 7.00 K/uL INTERFACE SYSTEM LYMPHOCYTE ABSOLUTE 1.82 0.70 - 4.50 K/uL INTERFACE SYSTEM MONOCYTE ABSOLUTE 0.68 0.10 - 1.30 K/uL INTERFACE SYSTEM EOSINOPHIL ABSOLUTE 0.09 0.00 - 0.70 K/uL INTERFACE SYSTEM BASOPHILS ABSOLUTE 0.02 0.00 - 0.20 K/uL INTERFACE SYSTEM 07/03/2004 12:2 5 PM CDT Enrique Brady MD HEMATOLOGY ORDERABLES Final Result Performing Organization Address [facility] Co de Phone Number INTERFACE SYSTEM Refer to clinic/hospital department * (ABNORMAL) CBC WITH DIFFERENTIAL (07/03/2004 12:25 PM CDT) WBC 9.6 4.0 - 9.8 K/uL INTERFACE SYSTEM RBC 4.01 3.90 - 4.90 M/uL INTERFACE SYSTEM HEMOGLOBIN 10.0(L) 11.8 - 14.8 g/dL INTERFACE SYSTEM HEMATOCRIT 32.3(L) 35.5 - 44.0 % INTERFACE SYSTEM MCV 80.5(L) 82.0 - 99.0 fL INTERFACE SYSTEM MCH 24.9(L) 27.2 - 32.6 pg INTERFACE SYSTEM MCHC 31.0(L) 31.5 - 35.5 % INTERFACE SYSTEM RDW 13.2 11.5 - 14.5 % INTERFACE SYSTEM RDW-STDEV 38.6 37.1 - 48.7 fL INTERFACE SYSTEM PLATELETS 205 140 - 350 K/uL INTERFACE SYSTEM MPV 10.9 9.3 - 12.4 fL INTERFACE SYSTEM 07/03/2004 12:2 5 PM CDT us Enrique Brady MD HEMATOLOGY ORDERABLES Final Result Performing Organization Address [facility] Phone Number INTERFACE SYSTEM Refer to clinic/hospital department * (ABNORMAL) URINALYSIS (07/03/2004 11:48 AM CDT) COLOR UA Yellow INTERFACE SYSTEM CLARITY UA Clear Clear INTERFACE SYSTEM SPECIFIC GRAVITY UA <1.005(L) 1.001 - 1.035 INTERFACE SYSTEM Comment:Results confirmed by 2nd methodology. PH UA 7.5 5.0 - 8.0 INTERFACE SYSTEM LEUKOCYTE ESTERASE UA 1+(A) Negative INTERFACE SYSTEM NITRITE UA Negative Negative INTERFACE SYSTEM PROTEIN UA Negative Negative INTERFACE SYSTEM GLUCOSE UA Negative Negative INTERFACE SYSTEM KETONES UA Negative Negative INTERFACE SYSTEM UROBILINOGEN UA <1 <1 EU INTE RFACE SYSTEM BILIRUBIN UA Negative Negative INTERFA CE SYSTEM BLOOD UA Negative Negative INTERFACE SYSTEM WBC UA <1 0 - 5 /HPF INTERFACE SYSTEM RBC UA <1 0 - 4 /HPF INTERFACE SYSTEM EPITHELIAL CELLS, URINE 0-2 /HPF INTERFACE SYSTEM 07/03/2004 11:4 8 AM CDT us Enrique Brady MD URINE ORDERABLES Final Result Performing Organization Address [facility] Phone Number INTERFACE SYSTEM Refer to clinic/hospital department documented in this encounter Visit Diagnoses Diagnosis Other current maternal conditions classifiable elsewhere, antepartum- Primary documented in this encounter Care Teams Physiotherapy Assistant Relationship Specialty [place] [address] [place] [phone] PCP - General Family Practice 10/06/12 documented as of this encounter
--- OUTSIDE RECORDS SUMMARY | 2024-05-07 18:35 | XMS_ITS | Encounter Summary ---
Author Organization [facility] Address [address] [place] [address] Care Team Providers Care Licensed Psychologist Manager Name Role Phone Charmaine Dykes MD Primary Care Provider [phone] MD Unavailable [phone] Encounter Details Date Type Department Care Team (Late st Contact Info) Description 11/03/[address] [facility] [address] [facility] [address] [place], [place] [phone] Catarina Rodriguez MD PhD [address] [facility] [phone] [place], [place] [phone] Social History Tobacco Use Types Packs/Day Years Used Date Smoking Tobacco: Never Smokeless Tobacco: Never Alcohol Use Standard Drinks/Week Comments No 0 (1 standard drink = 0.6 oz pur e alcohol) Comments No Sex and Gender Information Value Date Recorded Sex Assigned at Not on file Legal Sex Female 8:40 PM DAIRY HELPER Gender Identity Female 02/22/2022 12:40 PM DAIRY HELPER Sexual Orientation Not on file documented as of this encounter Plan of Treatment Not on file documented as of this encounter Goals Goal Patient Goal Type Associated Problems Recent Progress Patient-Stated? Author CCM Chronic Pain Care Plan Chronic Care Management Improving( 11:03 AM DAIRY HELPER) No Anastasia Kim, RN Note: Problem: Chronic Pain Goals: 1. Minimize further functional decline 2. Maximize quality of life 3. Control pain Strategies: - Activity/exercise program recommendation - Conservative stepwise pain medicine strategy with multi-disciplinary approach - Recommend healthy lifestyle strategies and compensatory methods as needed Reduce the likelihood of falling Lifestyle No change(03/29 10:11 AM DAIRY HELPER) Tia Way RN Note: Below are four things you can do to prevent falls: 1. Begin an exercise program to improve your leg strength & balance 2. Ask your doctor or pharmacist to review your medicines 3. Get annual eye check-ups & update your eyeglasses 4. Make your home safer by: Removing clutter & tripping hazards Putting railings on all stairs & adding grab bars in the bathroom Having good lighting, especially on stairs Contact your local community or [facility] for information on exercise, fall prevention programs, or options for improving home safety. documented as of this encounter Visit Diagnoses Not on filedocumented in this encounter Care Teams Licensed Psychologist Manager Relationship Specialty Start Date End Date Charmaine Dykes MD PCP - General 05/26/[address] [place] [id number] [address] Consulting Physician Endocrinology Diabetes & Metabolism 06/01/23 documented as of this encounter
--- OUTSIDE RECORDS SUMMARY | 2024-05-07 18:35 | XMS_ITS | Encounter Summary ---
Author Organization [facility] Address 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
--- OUTSIDE RECORDS SUMMARY | 2024-05-07 18:35 | XMS_ITS | Encounter Summary ---
Author Organization [employer] [facility] Address 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
--- OUTSIDE RECORDS SUMMARY | 2024-05-07 18:35 | XMS_ITS | Encounter Summary ---
Author Organization [employer] Address 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 Gender Identity Not on file Sexual Orientation Not on file documented as of this encounter Plan of Treatment Not on file documented as of this encounter Procedures Procedure Name Priority Date/Time Associated Diagnosis Comments URINALYSIS W/REFLEX MICROSCOPIC Routine 09/02/2004 5:43 AM CDT CBC WITH DIFFERENTIAL Routine 09/02/2004 5:00 AM CDT CBC WITH DIFFERENTIAL Routine 09/02/2004 5:00 AM CDT URIC ACID Routine 09/02/2004 5:00 AM CDT AST Routine 09/02/2004 5:00 AM CDT LACTATE DEHYDROGENASE Routine 09/02/2004 5:00 AM CDT documented in this encounter Results * (ABNORMAL) URINALYSIS (09/02/2004 5:43 AM CDT) COLOR UA Yellow INTERFACE SYSTEM CLARITY UA Slt. Cloudy(A) Clear INTERFACE SYSTEM SPECIFIC GRAVITY UA 1.020 1.001 - 1.035 INTERFACE SYSTEM PH UA 6.5 5.0 - 8.0 INTERFACE SYSTEM LEUKOCYTE ESTERASE UA 2+(A) Negative INTERFACE SYSTEM NITRITE UA Negative Negative INTERFACE SYSTEM PROTEIN UA 1+(A) Negative INTERFACE SYSTEM GLUCOSE UA Negative Negative INTERFACE SYSTEM KETONES UA 2+(A) Negative INTERFACE SYSTEM UROBILINOGEN UA 2(H) <=1 mg/dL INTE RFACE SYSTEM Comment: Effective 07/29/04, Urobilinogen will be reported in mg/dL resulting in a n increased sensitivity at lower urobilinogen levels. Previously, results were reported in [place] unit(EU)/dL. 1+ results previously reported as 1 EU/dL (normal) will become 2 mg/dL (abnormal). BILIRUBIN UA Negative Negative INTERFA CE SYSTEM BLOOD UA Negative Negative INTERFACE SYSTEM WBC UA 33(H) 0 - 5 /HPF INTERFACE SYSTEM RBC UA 2 0 - 4 /HPF INTERFACE SYSTEM BACTERIA UA 3+(A) None Seen /HPF INTERFACE SYSTEM EPITHELIAL CELLS, URINE Many /HPF INTERFACE SYSTEM 09/02/2004 5:43 AM CDT us Enrique Brady MD URINE ORDERABLES Final Result INTERFACE SYSTEM Refer to clinic/hospital department * CBC WITH DIFFERENTIAL (09/02/2004 5:00 AM CDT) NEUTROPHILS 65 45 - 70 % INTERFAC E SYSTEM LYMPHOCYTES 27 16 - 45 % INTERFAC E SYSTEM MONOCYTES 8 3 - 13 % INTERFACE SYSTEM EOSINOPHILS 1 0 - 7 % INTERFAC E SYSTEM BASOPHILS 0 0 - 2 % INTERFACE SYSTEM NEUTROPHIL ABSOLUTE 5.43 1.90 - 7.00 K/uL INTERFACE SYSTEM LYMPHOCYTE ABSOLUTE 2.27 0.70 - 4.50 K/uL INTERFACE SYSTEM MONOCYTE ABSOLUTE 0.66 0.10 - 1.30 K/uL INTERFACE SYSTEM EOSINOPHIL ABSOLUTE 0.05 0.00 - 0.70 K/uL INTERFACE SYSTEM BASOPHILS ABSOLUTE 0.01 0.00 - 0.20 K/uL INTERFACE SYSTEM 09/02/2004 5:00 AM CDT Enrique Brady MD HEMATOLOGY ORDERABLES Final Result Performing Organization Address [facility] Phone Number INTERFACE SYSTEM Refer to clinic/hospital department * (ABNORMAL) CBC WITH DIFFERENTIAL (09/02/2004 5:00 AM CDT) WBC 8.4 4.0 - 9.8 K/uL INTERFACE SYSTEM RBC 4.35 3.90 - 4.90 M/uL INTERFACE SYSTEM HEMOGLOBIN 10.0(L) 11.8 - 14.8 g/dL INTERFACE SYSTEM HEMATOCRIT 33.1(L) 35.5 - 44.0 % INTERFACE SYSTEM MCV 76.1(L) 82.0 - 99.0 fL INTERFACE SYSTEM MCH 23.0(L) 27.2 - 32.6 pg INTERFACE SYSTEM MCHC 30.2(L) 31.5 - 35.5 % INTERFACE SYSTEM RDW 15.3(H) 11.5 - 14.5 % INTERFACE SYSTEM RDW-STDEV 42.2 37.1 - 48.7 fL INTERFACE SYSTEM PLATELETS 213 140 - 350 K/uL INTERFACE SYSTEM MPV 11.6 9.3 - 12.4 fL INTERFACE SYSTEM 09/02/2004 5:00 AM CDT Enrique Brady MD HEMATOLOGY ORDERABLES Final Result Performing Organization Address [facility] Phone Number INTERFACE SYSTEM Refer to clinic/hospital department * URIC ACID (09/02/2004 5:00 AM CDT) URIC ACID 3.9 2.3 - 6.6 mg/dL INTERFACE SYSTEM 09/02/2004 5:00 AM CDT Enrique Brady MD CHEMISTRY ORDERABLES F inal Result Performing Organization Address [facility]/ZIP Co de Phone Number INTERFACE SYSTEM Refer to clinic/hospital department * AST (09/02/2004 5:00 AM CDT) AST 20 12 - 32 U/L INTERFAC E SYSTEM 09/02/2004 5:00 AM CDT Enrique Brady MD CHEMISTRY ORDERABLES F inal Result Performing Organization Address [facility] Co de Phone Number INTERFACE SYSTEM Refer to clinic/hospital department * LACTATE DEHYDROGENASE (09/02/2004 5:00 AM CDT) LD (LACTATE DEHYDROGENASE) 175 135 - 214 U/L INTERFACE SYSTEM 09/02/2004 5:00 AM CDT us Enrique Brady MD CHEMISTRY ORDERABLES F inal Result Performing Organization Address [facility] Co de Phone Number INTERFACE SYSTEM Refer to clinic/hospital department documented in this encounter Visit Diagnoses Diagnosis Other specified indication for care or intervention related to labor and delivery, delivered- Primary documented in this encounter Care Teams Histology Tech Relationship Specialty Start Date End Date Charmaine Dykes MD [address] [place] [address] PCP - General Family Practice 10/06/12 documented as of this encounter
--- OUTSIDE RECORDS SUMMARY | 2024-05-07 18:35 | XMS_ITS | Encounter Summary ---
Author Organization [facility] Address [address] [place] [address] Care Team Providers Care Gasfitter Name Role Phone Charmaine Dykes MD Primary Care Provider [phone] Encounter Details Date Type Department Care Team (Late st Contact Info) Description 07/10/2004 Outpatient Historical [facility] Maternal and Ground Floor [facility] [address] [place] [address] Amee Olvera MD [address] [place] [address] Social History Tobacco Use Types Packs/Day Years Used Date Smoking Tobacco: Never Assessed Comments Unknown Sex and Gender Information Value Date Recorded Sex Assigned at Not on file 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
--- OUTSIDE RECORDS SUMMARY | 2024-05-07 18:35 | XMS_ITS | Encounter Summary ---
Author Organization [employer] Address 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 Gender Identity Not on file Sexual Orientation Not on file documented as of this encounter Plan of Treatment Not on file documented as of this encounter Procedures Procedure Name Priority Date/Time Associated Diagnosis Comments URINALYSIS W/REFLEX MICROSCOPIC Routine 07/09/2004 2:39 PM CDT documented in this encounter Results * URINALYSIS (07/09/2004 2:39 PM CDT) COLOR UA Yellow INTERFACE SYSTEM CLARITY UA Clear Clear INTERFACE SYSTEM SPECIFIC GRAVITY UA 1.005 1.001 - 1.035 INTERFACE SYSTEM PH UA 5.5 5.0 - 8.0 INTERFACE SYSTEM LEUKOCYTE ESTERASE UA Negative Negative INTERFACE SYSTEM NITRITE UA Negative Negative INTERFACE SYSTEM PROTEIN UA Negative Negative INTERFACE SYSTEM GLUCOSE UA Negative Negative INTERFACE SYSTEM KETONES UA Negative Negative INTERFACE SYSTEM UROBILINOGEN UA <1 <1 EU INTE RFACE SYSTEM BILIRUBIN UA Negative Negative INTERFA CE SYSTEM BLOOD UA Negative Negative INTERFACE SYSTEM 07/09/2004 2:39 PM CDT us Amee Olvera MD URINE ORDERABLES Final Result INTERFACE SYSTEM Refer to clinic/hospital department documented in this encounter Visit Diagnoses Diagnosis Other current maternal conditions classifiable elsewhere, antepartum- Primary documented in this encounter Care Teams Glass Vial Filler Relationship Specialty Start Date End Date Charmaine Dykes MD [address] [place] [address] PCP - General Family Practice 10/06/12 documented as of this encounter
--- OUTSIDE RECORDS SUMMARY | 2024-05-07 18:35 | XMS_ITS | Encounter Summary ---
Author Organization [facility] Address [address] [place] [address] Care Team Providers Care Liability Analyst Name Role Phone Charmaine Dykes MD Primary Care Provider [phone] Encounter Details Date Type Department Care Team (Late st Contact Info) Description 05/21/2004 Outpatient Historical HIS PATIENT IN A BED Chichi Vegas MD [address] [place] [phone] Enrique Brady MD [address] [place] [phone] THRT GENEVA LABOR-ANTEPART (Primary Dx) Social History Tobacco Use Types Packs/Day Years Used Date Smoking Tobacco: Never Assessed Comments Unknown Sex and Gender Information Value Date Recorded Sex Assigned at Not on file 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 PH UA 7.0 5.0 - 8.0 INTERFACE SYSTEM LEUKOCYTE ESTERASE UA Trace(A) Negative INTERFACE SYSTEM NITRITE UA Negative Negative INTERFACE SYSTEM PROTEIN UA Negative Negative INTERFACE SYSTEM GLUCOSE UA Negative Negative INTERFACE SYSTEM KETONES UA Negative Negative INTERFACE SYSTEM UROBILINOGEN UA <1 <1 EU INTE RFACE SYSTEM BILIRUBIN UA Negative Negative INTERFA CE SYSTEM BLOOD UA Negative Negative INTERFACE SYSTEM WBC UA 2 0 - 5 /HPF INTERFACE SYSTEM RBC UA <1 0 - 4 /HPF INTERFACE SYSTEM BACTERIA UA 1+(A) None Seen /HPF INTERFACE SYSTEM EPITHELIAL CELLS, URINE 2-5 /HPF INTERFACE SYSTEM 05/21/2004 6:22 PM CDT us Enrique Brady MD URINE ORDERABLES Final Result INTERFACE SYSTEM Refer to clinic/hospital department documented in this encounter Visit Diagnoses Diagnosis Threatened premature labor, antepartum(644.03)- Primary Threatened premature labor, antepartum documented in this encounter Care Teams Liability Analyst Relationship Specialty Start Date End Date Charmaine Dykes MD [address] [place] [address] PCP - General Family Practice 10/06/12 documented as of this encounter
--- OUTSIDE RECORDS SUMMARY | 2024-05-07 18:35 | XMS_ITS | Encounter Summary ---
Author Organization [facility] Address [address] [place] [address] Care Team Providers Care Textile Designer Name Role Phone Charmaine Dykes MD Primary Care Provider [phone] Charmaine Dykes MD Primary Care Provider [phone] MD Unavailable [phone] Encounter Details Date Type Department Care Team (Late st Contact Info) Description 05/27/2016 Orders Only [facility] ProviderJuanita MD [address] [place] [address] Social History Tobacco Use Types Packs/Day Years Used Date Smoking Tobacco: Never Alcohol Use Standard Drinks/Week Comments Yes 0 (1 standard drink = 0.6 oz pur e alcohol) Comments Unknown Sex and Gender Information Value Date Recorded Sex Assigned at Not on file 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 Historical Provider [facility] Final Result documented in this encounter Visit Diagnoses Not on filedocumented in this encounter Care Teams Textile Designer Relationship Specialty Start Date End Date Charmaine Dykes MD PCP - General 05/14/16 05/25/17 Charmaine Dykes MD PCP - General 05/26/[address] [place] [address] [place] [address] [address] Consulting Physician Endocrinology Diabetes & Metabolism 06/01/23 documented as of this encounter
--- OUTSIDE RECORDS SUMMARY | 2024-05-07 18:35 | XMS_ITS | Encounter Summary ---
Author Organization [facility] Address [address] [address] Care Team Providers Care Precision Thread Grinder Operator Name Role Phone Charmaine Dykes MD Primary Care Provider [phone] Charmaine Dykes MD Primary Care Provider [phone] Charmaine Dykes MD Primary Care Provider [phone] MD Unavailable [phone] Encounter Details Date Type Department Care Team (Late st Contact Info) Description 03/23/2016 Orders Only [facility] ProviderJuanita MD [address] [place] [address] Social History Tobacco Use Types Packs/Day Years Used Date Smoking Tobacco: Never Alcohol Use Standard Drinks/Week Comments Yes 0 (1 standard drink = 0.6 oz pur e alcohol) Comments Unknown Sex and Gender Information Value Date Recorded Sex Assigned at Not on file 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 Historical Provider MD [facility] Final Result documented in this encounter Visit Diagnoses Not on filedocumented in this encounter Care Teams Precision Thread Grinder Operator Relationship Specialty Start Date End Date Charmaine Dykes MD PCP - General 05/14/16 05/25/17 Charmaine Dykes MD PCP - General 04/03/13 05/13/16 Charmaine Dykes MD PCP - General 05/26/[address] [place] [address] [facility] [address] [place] [address] Consulting Physician Endocrinology Diabetes & Metabolism 06/01/23 documented as of this encounter
--- OUTSIDE RECORDS SUMMARY | 2024-05-07 18:35 | XMS_ITS | Encounter Summary ---
Author Organization [facility] Address [address] [place] [address] Care Team Providers Care Diagnostic Radiologic Technologist Name Role Phone Charmaine Dykes MD Primary Care Provider [phone] MD Unavailable [phone] Reason for Visit * Reason Onset Date Comments Med Refill 12/20/2017 Encounter Details Date Type Department Care Team (Late st Contact Info) Description 12/20/2017 Telephone [facility] at [address] [place] [address] Jenaro Tracy MD [address] [address] Med Refill Social History Tobacco Use Types Packs/Day Years Used Date Smoking Tobacco: Never Smokeless Tobacco: Never Alcohol Use Standard Drinks/Week Comments No 0 (1 standard drink = 0.6 oz pur e alcohol) Comments No Sex and Gender Information Value Date Recorded Sex Assigned at Not on file 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 90 tablet 12/23/2017 01/19/2018 documented in this encounter Plan of Treatment Not on file documented as of this encounter Goals Goal Patient Goal Type Associated Problems Recent Progress Patient-Stated? Author CCM Chronic Pain Care Plan Chronic Care Management Improving( 11:03 AM REPAIR SUPERVISOR) Anastasia Snowden, RN Note: Problem: Chronic Pain Goals: 1. Minimize further functional decline 2. Maximize quality of life 3. Control pain Strategies: - Activity/exercise program recommendation - Conservative stepwise pain medicine strategy with multi-disciplinary approach - Recommend healthy lifestyle strategies and compensatory methods as needed Reduce the likelihood of falling Lifestyle No change(03/29 10:11 AM REPAIR SUPERVISOR) Tai Way, RN Note: Below are four things you [...] on stairs Contact your local community or senior center for information on exercise, fall prevention programs, or options for improving home safety. documented as of this encounter Visit Diagnoses Diagnosis Chronic pain syndrome documented in this encounter Discontinued Medications Medication Sig Discontinue Reason Start Date End Da te carisoprodol (SOMA) 350 mg tabletIndications:Chroni c pain syndrome Take 1 tablet (350 mg total) by mouth 3 (three) times a day as needed for muscle spasms. Reorder 11/23/2017 12/20/2017 documented as of this encounter Care Teams Diagnostic Radiologic Technologist Relationship Specialty Start Date End Date Charmaine Dykes MD PCP - General 05/26/[address] [place] [address] [facility] [address] [place] [address] Consulting Physician Endocrinology Diabetes & Metabolism 06/01/23 documented as of this encounter
--- OUTSIDE RECORDS SUMMARY | 2024-05-07 18:35 | XMS_ITS | Encounter Summary ---
Author Organization [facility] Address [address] [address] Care Team Providers Care Police Superintendent Name Role Phone Charmaine Dykes MD Primary Care Provider [phone] Charmaine Dykes MD Primary Care Provider [phone] Charmaine Dykes MD Primary Care Provider [phone] MD Unavailable [phone] Encounter Details Date Type Department Care Team (Late st Contact Info) Description 12/30/2015 Orders Only [facility] ProviderJuanita MD [address] [place] [address] Social History Tobacco Use Types Packs/Day Years Used Date Smoking Tobacco: Never Assessed Comments Unknown Sex and Gender Information Value Date Recorded Sex Assigned at Not on file 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 Historical Provider [facility]AS[facility] Final Result documented in this encounter Visit Diagnoses Not on filedocumented in this encounter Care Teams Police Superintendent Relationship Specialty Start Date End Date Charmaine Dykes MD PCP - General 05/14/16 05/25/17 Charmaine Dykes MD PCP - General 04/03/13 05/13/16 Charmaine Dykes MD PCP - General 05/26/[address] [place] [address] [address] Consulting Physician Endocrinology Diabetes & Metabolism 06/01/23 documented as of this encounter
--- OUTSIDE RECORDS SUMMARY | 2024-05-07 18:36 | XMS_ITS | Clinical Summary ---
Author Organization [facility] Healthcare Address [address] [place] [address] Care Team Providers Care Pharmacy Benefits Coordinator Name Role Phone Charmaine Dykes MD Primary Care Provider [phone] MD Unavailable [phone] Allergies Active Allergy Reactions Criticality Noted Date Comments Clonazepam Other (See comments) Low 07/26/2017 drowsiness Droperidol Dystonia High Oxymorphone Other (See comments) Low 07/26/2017 Nightmares Prochlorperazine Dystonia High Sulfa (Sulfonamide Antibiotics) Rash Medium Vancomycin Unknown 07/26/2017 Arms turned bright red, itchy, 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 Medications ergocalciferol (VITAMIN D2) 50,000 unit capsule take 1 capsule by oral route every week 0 0 014 Active montelukast (SINGULAIR) 10 mg tablet take 1 tablet by oral route every day in the evening 0 0 014 Active dicyclomine (BENTYL) 10 mg capsuleIndication s:Abdominal Pain with Cramps,Irritable Bowel Syndrome Take 1 capsule (10 mg total) by mouth 3 (three) times a day as needed (IBS) [address] (PROTONIX) 40 mg EC tabletIndications :Treatment of Non-Bleeding Gastric Disorder Take 1 tablet (40 mg total) by mouth daily after lunch 017 Active buPROPion XL (WELLBUTRIN XL) 150 mg 24 hr tabletIndications :Anxiety with Depression Take 1 tablet (150 mg total) by mouth every morning 0 019 Active albuterol HFA (PROVENTIL HFA,VENTOLIN HFA,PROAIR HFA) 90 mcg/actuation inhalerIndication s:Acute Asthma Attack Inhale 2 puffs every 6 (six) hours as needed for wheezing or shortness of breath Active naloxone (NARCAN) 4 mg/actuation spray,non-aerosol Indications:Opiat e-Induced Respiratory Depression Administer 1 spray into affected nostril(s) as needed for opioid reversal or respiratory depression Call 911. Administer a single spray in one nostril. Repeat every 3 minutes as needed if no or minimal response. 2 each 021 Active ibuprofen (ADVIL,MOTRIN) 200 mg tab/capIndication s:Pain Take 2-4 tablet/capsule (400-800 mg total) by mouth every 6 (six) hours as needed for pain Takes 2 tabs as needed. Active acetaminophen-asp irin-caffeine (EXCEDRIN MIGRAINE) 250-250-65 mg per tabletIndications :Migraine Take 1 tablet by mouth every 6 (six) hours as needed for headaches Active levothyroxine (Synthroid) 100 mcg tabletIndications :hypothyroidism Take 1 tablet (100 mcg total) by mouth pc technician before breakfast 90 tablet 3 023 Active ondansetron ODT (ZOFRAN-ODT) 8 mg disintegrating tabletIndications :nausea Take 1 tablet (8 mg total) by mouth every 8 (eight) hours as needed for nausea or vomiting 20 tablet 2 023 Active amLODIPine (NORVASC) 10 mg tablet TAKE 1 TABLET BY MOUTH DAILY 90 tablet 3 023 Active metoprolol tartrate (LOPRESSOR) 50 mg immediate release tabletIndications :Essential hypertension TAKE 1 TABLET BY MOUTH TWICE DAILY 180 tablet 3 023 Active hydrocortisone (CORTEF) 10 mg tablet TAKE 1 TABLET(10 MG) BY MOUTH TWICE DAILY 180 tablet [address] (CYMBALTA) 30 mg capsuleIndication s:Chronic pain syndrome,Cervical radiculopathy Take 1 capsule (30 mg total) by mouth daily 90 capsule 3 024 Active baclofen (LIORESAL) 10 mg tabletIndications :Chronic pain syndrome TAKE 2 TABLETS BY MOUTH 3 TIMES DAILY 540 tablet [address] (VOLTAREN) 75 mg EC tabletIndications :Pain Take 1 tablet (75 mg total) by mouth 2 (two) times a day 60 tablet 024 2024 Active pregabalin (LYRICA) 200 mg capsuleIndication s:neuropathic pain Take 1 capsule (200 mg total) by mouth 3 (three) times a day 270 capsule 3 025 2025 Active methocarbamoL (ROBAXIN) 500 mg tabletIndications :Chronic pain syndrome,Cervical radiculopathy,Manohar ralgia Take 1 tablet (500 mg total) by mouth 3 (three) times a day 90 tablet 3 025 Active HYDROcodone-aceta minophen (NORCO) 10-325 mg per tabletIndications :Pain Take 1 tablet by mouth every 6 (six) hours as needed for pain 120 tablet Active rimegepant (NURTEC ODT) tablet,disintegra tingIndications:M igraine Place 1 tablet (75 mg total) under the tongue daily as needed (migraines) 8 tablet [address] (CYMBALTA) 60 mg capsuleIndication s:Chronic pain syndrome,Cervical radiculopathy TAKE 1 CAPSULE BY MOUTH IN THE MORNING (TAKES ALONG WITH A 30 MG CAPSULE TO EQUAL 90 MG DAILY) 30 capsule 11 025 Active traZODone (DESYREL) 50 mg tabletIndications :Chronic pain syndrome,Cervical radiculopathy TAKE 1 TABLET BY MOUTH AT NIGHT 30 tablet 11 025 Active traZODone (DESYREL) 50 mg tabletIndications :Chronic pain syndrome,Cervical radiculopathy TAKE 1 TABLET BY MOUTH AT NIGHT 30 tablet 11 [address] (CYMBALTA) 60 mg capsuleIndication s:Chronic pain syndrome,Cervical radiculopathy TAKE 1 CAPSULE BY MOUTH EVERY MORNING (TAKES ALONG WITH A 30 MG CAPSULE TO EQUAL 90 MG DAILY) 30 capsule 11 024 2024 Discontinued Active Problems Problem Noted Date Diagnosed Date Synovial cyst 05/19/2023 Intractable chronic migraine without aura and without status migrainosus 12/09/2022 Migraine with aura and without status migrainosu s 03/15/2022 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 IF YOU HAVE REPEATED VOMITING, THEN TAKE DECADRON (DEXAMETHASONE) 1ML(4MG) INTRA-MUSCULARLY AND THEN GO TO THE EMERGENCY ROOM SOON POSSIBLE. IF YOU FEEL SYMPTOMS OF A COLD, FLU, OR ANY OTHER MINOR ILLNESS, THEN TAKE TWICE TO THRICE YOUR USUAL DOSE OF PREDNISONE OR HYDROCORTISONE FOR THREE (3) DAYS. OBTAIN AND WEAR A MEDICAL ALERT TAG OR BRACELET AT ALL TIMES FOR ANY ADDITIONAL INFORMATION, CONTACT YOUR PHYSICIAN DOCTOR S NAME: RJ ESCOBEOD MD DOCTOR S PHONE NUMBER: [phone] TUESDAY THROUGH TUESDAY 0800 TO 1630 AFTER 1630 AND ON WEEKENDS, CALL EXCHANGE [phone] AND ASK THE HOSPITAL COAT REPAIR INSPECTOR TO PAGE YOUR DOCTOR OR THE CRYOGENICS ENGINEER TRAINING AND DEVELOPMENT OFFICER. Long COVID 04/14/2021 S/P insertion of spinal cord stimulator 10/14/19 21 Chronic pain syndrome 08/07/2020 Post laminectomy syndrome 04/14/2020 Lumbar radiculopathy 11/16/2018 Falls frequently 11/16/2018 [facility] current use of therapeutic drug 2018 Arm weakness 07/12/2018 Overview (07/12/2018): Left greater than right Cervical radiculopathy 06/05/2018 Palpitations 07/22/2016 Essential hypertension 03/23/2016 Overview (05/21/2016): Essential hypertension Thoracic back pain 09/26/2013 Overview (02/22/2022): Chest pain, atypical Neck pain 04/03/2013 Overview (05/21/2016): Neck pain Hypertension 04/03/2013 Overview (05/21/2016): Hypertension Surgical follow-up care 01/24/2013 Osteoarthritis of cervical spine without myelopa thy 05/15/2012 Pituitary microadenoma 07/26/2011 Adrenal insufficiency (CMS/HCC) 06/23/2011 Overview (02/22/2022): Adrenal insufficiency Primary hypothyroidism 04/16/2011 Overview (02/22/2022): Hypothyroidism Assessment & Plan (02/22/2022 4:55 PM IC DESIGN MANAGER): Pt currently on Levothyroxine 100 mcg oral daily Recheck TFT today and further plans based on it Instructions for taking levothyroxine Brand name is preferred Take thyroid pill all by itself Take thyroid pill one hour before food or 2 to 3 hours after food Heat, humidity, and direct sunlight will cause a loss of potency Never store thyroid pill in the bathroom The medication should be taken daily. If one or more pills are missing in a week, they can be taken all together at once, making sure at the end of the week, 7 tabs have been taken. Nonspecific abnormal results of other endocrine function study 04/13/2011 Brachial (cervical) neuritis 08/16/2010 Osteoarthritis 08/16/2010 Anemia, unspecified 07/23/2003 Asthma 07/23/2003 Family history of polycystic kidney 07/23/2003 Irritable bowel syndrome 07/23/2003 Resolved Problems Problem Noted Date Diagnosed Date Resolved Date Methadone dependence 04/22/2015 023 Encounters Date Type Department Care Team Description 04/05/2024 Telephone [facility] [place] [facility] [address] [facility] [address] [place] [address] Catarina Rodriguez MD PhD [facility] approved 04/05/24-04/05/2025 03/15/2024 10:39 AM IC DESIGN MANAGER - 03/15/2024 11:59 PM IC DESIGN MANAGER Hospital Encounter [facility] [address] 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 (Primary Dx); Intractable migraine with aura without status migrainosus Discharge Disposition: Discharge to home or self care 03/13/2024 Telephone [facility] [address] [place] [address] for [facility] Medicine [address] [place] [address] Catarina Rodriguez MD PhD PMC Preprocedure 03/06/2024 Orders Only [facility] [address] [place] [address] for [facility] Medicine [address] [place] [address] Catarina Rodriguez MD PhD Intractable migraine with aura without status migrainosus (Primary Dx) 02/29/2024 4:30 PM IC DESIGN MANAGER - 02/29/2024 11:59 PM IC DESIGN MANAGER Hospital Encounter [facility] [address] [place] [address] Catarina Rodriguez MD PhD Acute exacerbation of chronic low back pain; Spinal cord stimulator status; Post laminectomy syndrome Discharge Disposition: Discharge to home or self care 02/29/2024 2:38 PM IC DESIGN MANAGER - 02/29/2024 11:59 PM IC DESIGN MANAGER Hospital Encounter [facility] [address] [place] [address] Advanced Medicine [address] [place] [address] Catarina Rodriguez MD PhD Intractable migraine with aura without status migrainosus (Primary Dx); Intractable chronic migraine without aura and without status migrainosus; Acute exacerbation of chronic low back pain; Spinal cord stimulator status; Post laminectomy syndrome; Neck pain; Lumbar radiculopathy Discharge Disposition: Discharge to home or self care from Last 3 Months Immunizations Immunization Administration Dates Next Due Influenza, Quadrivalent, Hanny l Culture-based MDCK, Preservative Free, Antibiotic Free, Intramuscular 11/17/2016 Influenza, Quadrivalent, Rec ombinant, Egg Free, Preservative Free, Intramuscular 03/20/2021,11/30/2019 Influenza, Quadrivalent, Spl it, Intramuscular 11/24/2018 Influenza, Quadrivalent, Spl it, Preservative Free, Intramuscular 11/24/2018,11/21/2017,11/20/2017 Influenza, Trivalent, IM (MDV) 11/25/2013,2012,02/14/2001 Influenza, Trivalent, Preser vative Free, Intramuscular 11/17/2015,11/19/2014 Td, adsorbed 02/14/1997 Surgical History Surgery Date Site/Laterality Comments HYSTERECTOMY 04/14/2016 - 05/14/2016 Bilateral CERVICAL DISCECTOMY C2-C7 CHOLECYSTECTOMY TONSILLECTOMY 02/14/1990 - 02/13/1991 childhood SINUS SURGERY 02/14/2009 - 02/13/2010 to repair GEORGI Medical History Medical History Date Comments Hx Other Medical neck surgery Hypertension Chronic pain Neck pain Low back pain Hypothyroidism Fibromyalgia Adrenal insufficiency Asthma Covid-19 Depression Sleep apnea Migraines Family History Medical History Relation Name Comments PONV Mother Polycystic kidney disease Mother Cancer Other Hypertension Other Anesthesia problems Neg Hx Relation Name Status Comments Father Alive Mother (Age 33) Other Social History Tobacco Use Types Packs/Day Years Used Date Smoking Tobacco: Never Passive Smoke Exposure: Never Smokeless Tobacco: Never Tobacco Cessation:Counseling Given: Not Answered Alcohol Use Standard Drinks/Week Comments No 0 (1 standard drink = 0.6 oz pur e alcohol) AUDIT-C Answer Date Recorded Q1: How often do you have a drink containing alcohol? Never 02/29/2024 Q2: How many drinks containi ng alcohol do you have on a typical day when you are drinking? Patient does not drink Q3: How often do you have si x or more drinks on one occasion? Never 02/29/2024 Hunger Vital Sign Answer Date Recorded Within the past 12 months, y ou worried that your food would run out before you got the money to buy more. Never true 12/10/19 23 Within the past 12 months, t he food you bought just didn't last and you didn't have money to get more. Never true 12/09/2022 Personal Safety Answer Date Recorded Have you ever been in or are you currently in a harmful physical or emotional relationship or is someone making you feel afraid or unsafe? Denies 06/09/2023 Comments No Sex and Gender Information Value Date Recorded Sex Assigned at Not on file Legal Sex Female 8:40 PM IC DESIGN MANAGER Gender Identity Female 02/22/2022 12:40 PM IC DESIGN MANAGER Sexual Orientation Not on file Occupation Industry Job Start Date Job End Date disability Not on file Not on file Not on file Obstetrics History Last Filed Vital Signs Vital Sign Reading Time Taken Comments Blood Pressure 125/79 03/15/2024 10:59 AM IC DESIGN MANAGER Pulse 98 03/15/2024 10:59 AM IC DESIGN MANAGER Temperature 37.1 C (98.7 F) 03/15/2024 10:59 AM IC DESIGN MANAGER Respiratory Rate 20 03/15/2024 10:59 AM IC DESIGN MANAGER Oxygen Saturation 96% 03/15/2024 10:59 AM IC DESIGN MANAGER Inhaled Oxygen Concentration - - Weight 72.6 kg (160 lb) 02/29/2024 2:57 PM IC DESIGN MANAGER Height 154.9 cm (5' 1 ) 02/29/2024 2:57 PM IC DESIGN MANAGER Body Mass Index 30.23 02/29/2024 2:57 PM IC DESIGN MANAGER Plan of Treatment Health Maintenance Due Date Last Done Comments Colon Cancer Screening-Colonoscopy 1977 Depression Screening 1977 Hepatitis C Screening 1977 Hepatitis B Screening 10/04/1995 Regular Well Visit/Exam 18-64 10/04/1995 Pneumococcal vaccine <65 (1 of 2 - PCV) 1996 DTaP/Tdap/Td Vaccine (1 - Tdap) 02/15/1997 02/14/1997 Breast Cancer Screening-Mammogram 05/21/2014 05/21/2013 Influenza Vaccine (#1) 2023 2, 11/30/2019, 11/24/2018, Additional history exists HPV Vaccines Aged Out No longer eligi ble based on patient's age to complete this topic Goals Goal Patient Goal Type Associated Problems Recent Progress Patient-Stated? Author CCM Chronic Pain Care Plan Chronic Care Management Improving( 11:03 AM IC DESIGN MANAGER) No Anastasia Kim, NATHAN Note: Problem: Chronic Pain Goals: 1. Minimize further functional decline 2. Maximize quality of life 3. Control pain Strategies: - Activity/exercise program recommendation - Conservative stepwise pain medicine strategy with multi-disciplinary approach - Recommend healthy lifestyle strategies and compensatory methods as needed Reduce the likelihood of falling Lifestyle No change(03/29 10:11 AM IC DESIGN MANAGER) Tia Way RN Note: Below are four [...] on stairs Contact your local community or [facility] for information on exercise, fall prevention programs, or options for improving home safety. Medical Devices Implanted Type Area Soap Worker Device Identifier Shelf Expiration Date Model / Serial / Lot [employer] [id number] Vectris 5mm 60cm 1x8 Electrode Mri Lead Neurostimulator - [id number] Implanted:Qty: 1 on 08/12/2020 by Catarina Rodriguez MD PhD at [facility] Spinal Cord Stimulator N/A: Epidural Space [employer] 05/27/2024 [id number] / / Cervical Fusion Spine Cervical [employer] [id number] Neurostimulator Implantable Chronic Pain Rs2 - [id number] Implanted:Qty: 1 on 08/12/2020 by Catarina Rodriguez MD PhD at [facility] [employer] [id number] / / Explanted Type Area Soap Worker Device Identifier Shelf Expiration Date Model / Serial / Lot [employer] Inc [id number] Vectris 5mm 60cm 1x8 Electrode Trial Lead Neurostimulator - [id number] Implanted:Qty: 1 on 06/24/2020 by Catarina Rodriguez MD PhD at [facility] [employer] 06/04/2024 [id number] / / [id number] Procedures Procedure Name Priority Date/Time Associated Diagnosis Comments XR SPINE LUMBAR W BENDING 6 OR MORE VIEWS Schedule Routine, Read Routine (OP Routine) 02/29/2024 4:54 PM IC DESIGN MANAGER Acute exacerbation of chronic low back pain Spinal cord stimulator status Post laminectomy syndrome XR SPINE THORACIC 3 VIEWS Schedule Routine, Read Routine (OP Routine) 02/29/2024 4:54 PM IC DESIGN MANAGER Acute exacerbation of chronic low back pain Spinal cord stimulator status Post laminectomy syndrome SCREENING MAMMOGRAM W RADHAMES Routine 05/21/2013 11:44 AM CDT from Last 3 Months or Most Recently Relevant to Health Maintenance Results * X-ray lumbar spine complete with bending (02/29/2024 4:54 PM IC DESIGN MANAGER) Anatomical Region Laterality Modality Spine N/A Computed Radiogr aphy 02/29/2024 5:00 PM IC DESIGN MANAGER Impressions 02/29/2024 5:18 PM IC DESIGN MANAGER 1. No acute compression fractures in the thoracic or lumbar spine. 2. Multilevel mild to moderate degenerative disc disease in the thoracic spine. 3. Mild degenerative disc disease in the lumbar spine. Dictated by: Dustin Santana D.O. The radiology attending physician has personally reviewed this study, and had reviewed and/or edited this written report and agrees with it. Electronically signed by: Charly Savage MD Narrative 02/29/2024 5:18 PM IC DESIGN MANAGER EXAMINATION: XR SPINE LUMBAR W BENDING 6 OR MORE VIEWS, XR SPINE THORACIC 3 VIEWS HISTORY: pain, left lumbar paraspinal pain FINDINGS: Comparison with 12/14/2023. Thoracic spine: Partially visualized posterior and anterior cervical instrumentation. Partially visualized spinal screw spinal stimulator device with leads coursing into the cervical spine out of field of view. Trace levocurvature of the thoracic spine. No acute compression fractures in the thoracic spine. Multilevel mild to moderate degenerative disc disease. Clips project over the right lower neck. Lumbar spine: Trace dextrocurvature. No abnormal motion on flexion or extension. No pars defects. No acute compression fractures. Multilevel mild degenerative disc disease. Cholecystectomy clips. Procedure Note Charly Savage MD - 02/29/2024 EXAMINATION: XR SPINE LUMBAR W BENDING 6 OR MORE VIEWS, XR SPINE THORACIC 3 VIEWS HISTORY: pain, left lumbar paraspinal pain FINDINGS: Comparison with 12/14/2023. Thoracic spine: Partially visualized posterior and anterior cervical instrumentation. Partially visualized spinal screw spinal stimulator device with leads coursing into the cervical spine out of field of view. Trace levocurvature of the thoracic spine. No acute compression fractures in the thoracic spine. Multilevel mild to moderate degenerative disc disease. Clips project over the right lower neck. Lumbar spine: Trace dextrocurvature. No abnormal motion on flexion or extension. No pars defects. No acute compression fractures. Multilevel mild degenerative disc disease. Cholecystectomy clips. IMPRESSION: 1. No acute compression fractures in the thoracic or lumbar spine. 2. Multilevel mild to moderate degenerative disc disease in the thoracic spine. 3. Mild degenerative disc disease in the lumbar spine. Dictated by: Dustin Santana D.O. The radiology attending physician has personally reviewed this study, and had reviewed and/or edited this written report and agrees with it. Electronically signed by: Charly Savage MD Catarina Rodriguez MD PhD IMG XR PROCEDURES Final Result * X-ray thoracic spine 3 views (02/29/2024 4:54 PM IC DESIGN MANAGER) Anatomical Region Laterality Modality Spine N/A Computed Radiogr aphy 02/29/2024 5:00 PM IC DESIGN MANAGER Impressions 02/29/2024 5:18 PM IC DESIGN MANAGER 1. No acute compression fractures in the thoracic or lumbar spine. 2. Multilevel mild to moderate degenerative disc disease in the thoracic spine. 3. Mild degenerative disc disease in the lumbar spine. Dictated by: Dustin Santana D.O. The radiology attending physician has personally reviewed this study, and had reviewed and/or edited this written report and agrees with it. Electronically signed by: Charly Savage MD Narrative 02/29/2024 5:18 PM IC DESIGN MANAGER EXAMINATION: XR SPINE LUMBAR W BENDING 6 OR MORE VIEWS, XR SPINE THORACIC 3 VIEWS HISTORY: pain, left lumbar paraspinal pain FINDINGS: Comparison with 12/14/2023. Thoracic spine: Partially visualized posterior and anterior cervical instrumentation. Partially visualized spinal screw spinal stimulator device with leads coursing into the cervical spine out of field of view. Trace levocurvature of the thoracic spine. No acute compression fractures in the thoracic spine. Multilevel mild to moderate degenerative disc disease. Clips project over the right lower neck. Lumbar spine: Trace dextrocurvature. No abnormal motion on flexion or extension. No pars defects. No acute compression fractures. Multilevel mild degenerative disc disease. Cholecystectomy clips. Procedure Note Charly Savage MD - 02/29/2024 EXAMINATION: XR SPINE LUMBAR W BENDING 6 OR MORE VIEWS, XR SPINE THORACIC 3 VIEWS HISTORY: pain, left lumbar paraspinal pain FINDINGS: Comparison with 12/14/2023. Thoracic spine: Partially visualized posterior and anterior cervical instrumentation. Partially visualized spinal screw spinal stimulator device with leads coursing into the cervical spine out of field of view. Trace levocurvature of the thoracic spine. No acute compression fractures in the thoracic spine. Multilevel mild to moderate degenerative disc disease. Clips project over the right lower neck. Lumbar spine: Trace dextrocurvature. No abnormal motion on flexion or extension. No pars defects. No acute compression fractures. Multilevel mild degenerative disc disease. Cholecystectomy clips. IMPRESSION: 1. No acute compression fractures in the thoracic or lumbar spine. 2. Multilevel mild to moderate degenerative disc disease in the thoracic spine. 3. Mild degenerative disc disease in the lumbar spine. Dictated by: Dustin Santana D.O. The radiology attending physician has personally reviewed this study, and had reviewed and/or edited this written report and agrees with it. Electronically signed by: Charly Savage MD us Catarina Rodriguez MD PhD IMG XR PROCEDURES Final Result * Screening Mammogram W Radhames (05/21/2013 11:44 AM CDT) Anatomical Region Laterality Modality Breast N/A Mammography 05/21/2013 11:4 4 AM CDT Narrative 05/21/2013 1:37 PM CDT LUIS E HAMMOND M.D. TUNDE GREENFIELD M.D. FINAL REPORT The radiology attending physician has personally reviewed this study, and has reviewed and/or edited this written report and agrees with it. ACC# Date Time Exam [id number] May 21, 2013 11:37:00 [facility] [id number] Diag Mammogram Bilateral Technologist(s): Kalie Valero; ; [id number] May 21, 2013 11:44:00 [facility] [id number] Bilateral Tomosynthesis Technologist(s): Kalie Valero; ; [id number] May 21, 2013 12:06:00 [facility] [id number] Sono Breast (Unilateral) L EXAMINATION: BILATERAL FULL FIELD DIGITAL DIAGNOSTIC MAMMOGRAM WITH CAD, BILATERAL DIGITAL BREAST TOMOSYNTHESIS AND LEFT BREAST SONOGRAM HISTORY: 37-year-old woman with a self reported history of pituitary tumor presenting with 2 year history of left nipple discharge. Within the last year, the patient reports burning sensation in the left nipple. The patient reports history of breast cancer in both paternal and maternal grandmothers at 30 and 50 years of age. MAMMOGRAM TECHNIQUE: Full field digital craniocaudal and mediolateral oblique views were obtained. Computer Aided Detection was performed with Tubett.3 version 9.3. Bilateral digital breast tomosynthesis was also used within this examination. COMPARISON: None available. BREAST PARENCHYMAL COMPOSITION: There are scattered fibroglandular densities. MAMMOGRAM FINDINGS: There is no evidence of suspicious mass, suspicious microcalcifications or architectural distortion within either breast on mammogram. SONOGRAM FINDINGS: Directed sonogram of the left subareolar breast was performed. No focal abnormal solid or cystic lesion is identified in the subareolar left breast. There is no evidence of an intraductal mass or ductal distention. Upon manual expression by Dr. Greenfield, a minute amount of white liquid was expressed from the left nipple. Directed physical examination of the left nipple and subareolar breast demonstrates no definite suspicious palpable abnormality at this time. IMPRESSION: 1) No suspicious mammographic or sonographic findings are identified to account for left nipple discharge. Given patient's self-reported pituitary tumor, white nipple discharge may be related to galactorrhea. Any further evaluation at this time should be based on clinical assessment. Continued follow-up breast physical examination is recommended. If the patient's nipple discomfort does not resolve, surgical consultation might be considered. 2) Given reported family history of breast cancer, screening mammography schedule and possible supplemental screening should be determined by the referring physician. OVERALL FINAL ASSESSMENT: BI-RADS Category 1: Negative. Any decision to biopsy should be based on clinical assessment. Requested By: Lester Molina M.D. Dictated By: TUNDE GREENFIELD M.D. on May 21 2013 1:10P This document has been electronically signed by: LUIS E HAMMOND M.D. on May 21 2013 1:36P Procedure Note Provider, MD Juanita - 06/28/2016 Marli GUTIERREZGUENIA KARIMOVA, M.D. FINAL REPORT The radiology attending physician has personally reviewed this study, and has reviewed and/or edited this written report and agrees with it. [facility]# Date Time Exam [id number] May 21, 2013 11:37:00 [facility] [id number] Diag Mammogram Bilateral Technologist(s): Anjum Linn; ; [id number] May 21, 2013 11:44:00 [facility] [id number] Bilateral Tomosynthesis Technologist(s): Anjum Linn; ; [id number] May 21, 2013 12:06:00 [facility] [id number] Sono Breast (Unilateral) L EXAMINATION: BILATERAL FULL FIELD DIGITAL DIAGNOSTIC MAMMOGRAM WITH CAD, BILATERAL DIGITAL BREAST TOMOSYNTHESIS AND LEFT BREAST SONOGRAM HISTORY: 37-year-old woman with a self reported history of pituitary tumor presenting with 2 year history of left nipple discharge. Within the last year, the patient reports burning sensation in the left nipple. The patient reports history of breast cancer in both paternal and maternal grandmothers at 30 and 50 years of age. MAMMOGRAM TECHNIQUE: Full field digital craniocaudal and mediolateral oblique views were obtained. Computer Aided Detection was performed with Tubett.3 version 9.3. Bilateral digital breast tomosynthesis was also used within this examination. COMPARISON: None available. BREAST PARENCHYMAL COMPOSITION: There are scattered fibroglandular densities. MAMMOGRAM FINDINGS: There is no evidence of suspicious mass, suspicious microcalcifications or architectural distortion within either breast on mammogram. SONOGRAM FINDINGS: Directed sonogram of the left subareolar breast was performed. No focal abnormal solid or cystic lesion is identified in the subareolar left breast. There is no evidence of an intraductal mass or ductaldistention. Upon manual expression by Dr. Greenfield, a minute amount of white liquid was expressed from the left nipple. Directed physical examination of the left nipple and subareolar breast demonstrates no definite suspicious palpable abnormality at this time. IMPRESSION: 1) No suspicious mammographic or sonographic findings are identified to account for left nipple discharge. Given patient's self-reported pituitary tumor, white nipple discharge may be related to galactorrhea. Any further evaluation at this time should be based on clinical assessment. Continued follow-up breast physical examination is recommended. If the patient's nipple discomfort does not resolve, surgical consultation might be considered. 2) Given reported family history of breast cancer, screening mammography schedule and possible supplemental screening should be determined by the referring physician. OVERALL FINAL ASSESSMENT: BI-RADS Category 1: Negative. Any decision to biopsy should be based on clinical assessment. Requested By: Lester Molina M.D. Dictated By: TUNDE GREENFIELD M.D. on May 21 2013 1:10P This document has been electronically signed by: LUIS E HAMMOND M.D. on May 21 2013 1:36P us Historical Provider MD BREWER MAMMO PROCEDURES Kayy l Result from Last 3 Months or Most Recently Relevant to [place] [address] MEDICARE [facility] CHOICE PLUS [facility] HMO/PPO Address: [address] [address] [place] [address] [place] [address] MEDICARE [facility] CHOICE PLUS [facility] HMO/PPO Address: [address] [address] [place] [address] [place] [address] MEDICARE [facility] CHOICE PLUS [facility] HMO/PPO Address: [facility] [id number] [place] [address] Care Teams Pharmacy Benefits Coordinator Relationship Specialty Start Date End Date Charmaine Dykes MD PCP - General 05/26/[address] [place] [address] [address] Consulting Physician Endocrinology Diabetes & Metabolism 06/01/23
--- OUTSIDE RECORDS SUMMARY | 2024-05-07 18:36 | XMS_ITS | CONTINUITY OF CARE DOCUMENT ---
Author Name sanchez bradford Address Unknown Organization [facility] Address [address] [place] [address] Phone [phone] Care Team Providers Care Aluminum Shingle Roofer Name Role Phone Bayron KAISER, Saulo Unavailable INSURANCE PROVIDERS Payer name Policy type / Coverage type Bladimir red libertarian ID [facility] [id number]
--- OUTSIDE RECORDS SUMMARY | 2024-05-07 18:36 | XMS_ITS | Referral Summary ---
Author Organization [facility] Healthcare Address [address] [place] [address] Care Team Providers Care Air Conditioning Installer Name Role Phone Charmaine Dykes MD Primary Care Provider [phone] MD Unavailable [phone] Encounters Date Type Department Care Team Description 04/05/2024 Telephone [facility] [address] [place] [address] for Advanced Medicine [address] [place] [address] Catarina Rodriguez MD PhD [facility] approved 04/05/24-04/05/2025 03/15/2024 10:39 AM RATER ASSOCIATE - 03/15/2024 11:59 PM RATER ASSOCIATE Hospital Encounter [facility] [address] [place] [address] for Advanced Medicine [address] [place] [address] Catarina Rodriguez MD PhD shelter (current) use of opiate analgesic (Primary Dx); Intractable migraine with aura without status migrainosus Discharge Disposition: Discharge to home or self care 03/13/2024 Telephone [facility] [address] [place] [address] Catarina Rodriguez MD PhD [facility] Preprocedure 03/06/2024 Orders Only [facility] [address] [place] [address] for Advanced Medicine [address] [place] [address] Catarina Rodriguez MD PhD Intractable migraine with aura without status migrainosus (Primary Dx) 02/29/2024 4:30 PM RATER ASSOCIATE - 02/29/2024 11:59 PM RATER ASSOCIATE Hospital Encounter [facility] [address] [place] [address] Catarina Rodriguez MD PhD Acute exacerbation of chronic low back pain; Spinal cord stimulator status; Post laminectomy syndrome Discharge Disposition: Discharge to home or self care 02/29/2024 2:38 PM RATER ASSOCIATE - 02/29/2024 11:59 PM RATER ASSOCIATE Hospital Encounter [facility] [address] [facility] Advanced Medicine [address] [place] [address] Catarina Rodriguez MD PhD Intractable migraine with aura without status migrainosus (Primary Dx); Intractable chronic migraine without aura and without status migrainosus; Acute exacerbation of chronic low back pain; Spinal cord stimulator status; Post laminectomy syndrome; Neck pain; Lumbar radiculopathy Discharge Disposition: Discharge to home or self care from Last 3 Months Allergies Active Allergy Reactions Criticality Noted Date [...] 1 tablet (100 mcg total) by mouth air drill operator before breakfast 90 tablet 3 023 Active [...] hours as needed for pain 120 tablet 025 Active rimegepant (NURTEC ODT) tablet,disintegra tingIndications:M igraine Place 1 tablet (75 mg total) under the tongue daily as needed (migraines) 8 tablet [address] (CYMBALTA) 60 mg capsuleIndication s:Chronic pain syndrome,Cervical radiculopathy TAKE 1 CAPSULE BY MOUTH IN THE MORNING (TAKES ALONG WITH A 30 MG CAPSULE TO EQUAL 90 MG DAILY) 30 capsule 025 Active traZODone (DESYREL) 50 mg tabletIndications :Chronic pain syndrome,Cervical radiculopathy TAKE 1 TABLET BY MOUTH AT NIGHT 30 tablet 025 Active traZODone (DESYREL) 50 mg tabletIndications :Chronic pain syndrome,Cervical radiculopathy TAKE 1 TABLET BY MOUTH AT NIGHT 30 tablet [address] (CYMBALTA) 60 mg capsuleIndication s:Chronic pain syndrome,Cervical radiculopathy TAKE 1 CAPSULE BY MOUTH EVERY MORNING (TAKES ALONG WITH A 30 MG CAPSULE TO EQUAL 90 MG DAILY) 30 capsule 024 2024 Discontinued Active Problems Problem Noted Date Diagnosed Date Synovial cyst 05/19/2023 Intractable chronic migraine without aura and without status migrainosus 12/09/2022 Migraine with aura and without status migrainosu s 03/15/2022 shelter (current) use of opiate analgesic 02/15 Neurogenic thoracic outlet syndrome 02/22/2022 Secondary adrenal insufficiency 02/22/2022 Assessment & Plan (02/22/2022 4:56 PM RATER ASSOCIATE): Pt currently on Hydrocortisone 10 mg oral [...] CONTACT YOUR PHYSICIAN DOCTOR S NAME: RJ ESCOBEDO MD DOCTOR S PHONE NUMBER: [phone] TUESDAY THROUGH TUESDAY 0800 TO 1630 AFTER 1630 AND ON WEEKENDS, CALL EXCHANGE [phone] AND ASK THE HOSPITAL BREWERY PUMPER TO PAGE YOUR DOCTOR OR THE ENDOCRINOLOGY TEACHER EVAPORATOR. Long COVID 04/14/2021 S/P insertion of spinal cord stimulator 10/14/19 21 Chronic pain syndrome 08/07/2020 Post laminectomy syndrome 04/14/2020 Lumbar radiculopathy 11/16/2018 Falls frequently 11/16/2018 shelter current use of therapeutic drug 2018 Arm [...] thy 05/15/2012 Pituitary microadenoma 07/26/2011 Adrenal insufficiency ([facility]) 06/23/2011 Overview (02/22/2022): Adrenal insufficiency Primary hypothyroidism 04/16/2011 Overview (02/22/2022): Hypothyroidism Assessment & Plan (02/22/2022 4:55 PM RATER ASSOCIATE): Pt currently on Levothyroxine 100 mcg oral [...] Date Resolved Date Methadone dependence 04/22/2015 023 Immunizations Immunization Administration Dates Next Due Influenza, Quadrivalent, Hanny l Culture-based MDCK, Preservative Free, Antibiotic Free, Intramuscular 11/17/2016 Influenza, Quadrivalent, Rec ombinant, Egg Free, Preservative Free, Intramuscular 03/20/2021,11/30/2019 Influenza, Quadrivalent, Spl it, Intramuscular 11/24/2018 Influenza, Quadrivalent, Spl it, Preservative Free, Intramuscular 11/24/2018,11/21/2017,11/20/2017 Influenza, Trivalent, IM (MDV) 11/25/2013,2012,02/14/2001 Influenza, Trivalent, Preser vative Free, Intramuscular 11/17/2015,11/19/2014 Td, adsorbed 02/14/1997 Social History Tobacco Use Types Packs/Day Years [...] on file Legal Sex Female 8:40 PM RATER ASSOCIATE Gender Identity Female 02/22/2022 12:40 PM RATER ASSOCIATE Sexual Orientation Not on file Occupation Industry Job Start Date Job End Date disability Not on file Not on file Not on file Last Filed Vital Signs Vital Sign Reading Time Taken Comments Blood Pressure 125/79 03/15/2024 10:59 AM RATER ASSOCIATE Pulse 98 03/15/2024 10:59 AM RATER ASSOCIATE Temperature 37.1 C (98.7 F) 03/15/2024 10:59 AM RATER ASSOCIATE Respiratory Rate 20 03/15/2024 10:59 AM RATER ASSOCIATE Oxygen Saturation 96% 03/15/2024 10:59 AM RATER ASSOCIATE Inhaled Oxygen Concentration - - Weight 72.6 kg (160 lb) 02/29/2024 2:57 PM RATER ASSOCIATE Height 154.9 cm (5' 1 ) 02/29/2024 2:57 PM RATER ASSOCIATE Body Mass Index 30.23 02/29/2024 2:57 PM RATER ASSOCIATE Plan of Treatment Not on file Goals Goal Patient Goal Type Associated Problems Recent Progress Patient-Stated? Author CCM Chronic Pain Care Plan Chronic Care Management Improving( 11:03 AM RATER ASSOCIATE) No Anastasia Kim, RN Note: Problem: Chronic Pain Goals: 1. Minimize further functional decline 2. Maximize quality of life 3. Control pain Strategies: - Activity/exercise program recommendation - Conservative stepwise pain medicine strategy with multi-disciplinary approach - Recommend healthy lifestyle strategies and compensatory methods as needed Reduce the likelihood of falling Lifestyle No change(03/29 10:11 AM RATER ASSOCIATE) No Tia Morales RN Note: Below are four things you [...] home safety. Medical Devices Implanted Type Area Plumbing Mechanic Device Identifier Shelf Expiration Date Model / Serial / Lot [employer]onic Inc [id number] Vectris 5mm 60cm 1x8 Electrode Mri Lead Neurostimulator - [id number] Implanted:Qty: 1 on 08/12/2020 by Catarina Rodriguez MD PhD at [facility] Spinal Cord Stimulator N/A: Epidural Space [employer] Inc 05/27/2024 [id number] / / Cervical Fusion Spine Cervical [employer] Inc [id number] Neurostimulator Implantable Chronic Pain Rs2 - [id number] Implanted:Qty: 1 on 08/12/2020 by Catarina Rodriguez MD PhD at [facility] [employer] [id number] / / Explanted Type Area Plumbing Mechanic Device Identifier Shelf Expiration Date Model / Serial / Lot [employer] Inc [id number] Vectris 5mm 60cm 1x8 Electrode Trial Lead Neurostimulator - [id number] Implanted:Qty: 1 on 06/24/2020 by Catarina Rodriguez MD PhD at [facility] Back [employer] 06/04/2024 [id number] / / [id number] Procedures Procedure Name Priority Date/Time Associated Diagnosis Comments XR SPINE LUMBAR W BENDING 6 OR MORE VIEWS Schedule Routine, Read Routine (OP Routine) 02/29/2024 4:54 PM RATER ASSOCIATE Acute exacerbation of chronic low back pain Spinal cord stimulator status Post laminectomy syndrome XR SPINE THORACIC 3 VIEWS Schedule Routine, Read Routine (OP Routine) 02/29/2024 4:54 PM RATER ASSOCIATE Acute exacerbation of chronic low back pain Spinal cord stimulator status Post laminectomy syndrome SCREENING MAMMOGRAM W RADHAMES Routine 05/21/2013 11:44 AM CDT from Last 3 Months or Most Recently Relevant to Health Maintenance Results * X-ray lumbar spine complete with bending (02/29/2024 4:54 PM RATER ASSOCIATE) Anatomical Region Laterality Modality Spine N/A Computed Radiogr aphy 02/29/2024 5:00 PM RATER ASSOCIATE Impressions 02/29/2024 5:18 PM RATER ASSOCIATE 1. No acute compression fractures in the [...] Charly Savage MD Narrative 02/29/2024 5:18 PM RATER ASSOCIATE EXAMINATION: XR SPINE LUMBAR W BENDING 6 [...] thoracic spine 3 views (02/29/2024 4:54 PM RATER ASSOCIATE) Anatomical Region Laterality Modality Spine N/A Computed Radiogr aphy 02/29/2024 5:00 PM RATER ASSOCIATE Impressions 02/29/2024 5:18 PM RATER ASSOCIATE 1. No acute compression fractures in the thoracic or lumbar spine. 2. Multilevel mild to moderate degenerative disc disease in the thoracic spine. 3. Mild degenerative disc disease in the lumbar spine. Dictated by: Dustin Santana, D.O. The radiology attending physician has personally reviewed this study, and had reviewed and/or edited this written report and agrees with it. Electronically signed by: Charly Savage MD Narrative 02/29/2024 5:18 PM RATER ASSOCIATE EXAMINATION: XR SPINE LUMBAR W BENDING 6 [...] AM CDT Narrative 05/21/2013 1:37 PM CDT LIUS E HAMMOND M.D. TUNDE GREENFIELD M.D. FINAL REPORT The radiology attending physician has personally reviewed this study, and has reviewed and/or edited this written report and agrees with it. [facility]# Date Time Exam [id number] May 21, 2013 11:37:00 [facility] [id number] Diag Mammogram Bilateral Technologist(s): Kalie Valero; ; [id number] May 21, 2013 11:44:00 [facility] [id number] Bilateral Tomosynthesis Technologist(s): Kalie Valero; ; [id number] May 21, 2013 12:06:00 [facility] [id number] Sono Breast (Unilateral) L EXAMINATION: BILATERAL FULL [...] obtained. Computer Aided Detection was performed with FitLinxx.3 version 9.3. Bilateral digital breast tomosynthesis was [...] Procedure Note Provider, MD Juanita - 06/28/2016 LUIS E HAMMOND M.D. TUNDE GREENFIELD M.D. FINAL REPORT The radiology attending physician has personally reviewed this study, and has reviewed and/or edited this written report and agrees with it. [facility]# Date Time Exam [id number] May 21, 2013 11:37:00 [facility] [id number] Diag Mammogram Bilateral Technologist(s): Kalie Valero; ; [id number] May 21, 2013 11:44:00 [facility] [id number] Bilateral Tomosynthesis Technologist(s): Kalie Valero; ; [id number] May 21, 2013 12:06:00 [facility] [id number] Sono Breast (Unilateral) L EXAMINATION: BILATERAL FULL [...] obtained. Computer Aided Detection was performed with FitLinxx.3 version 9.3. Bilateral digital breast tomosynthesis was [...] HAMMOND M.D. on May 21 2013 1:36P Historical Provider MD BREWER MAMMO PROCEDURES Kayy l Result from Last 3 Months or Most Recently Relevant to Health Maintenance Insurance MEDICARE [facility] [place] [address] [address] [place] [id number] MEDICARE [facility] CHOICE PLUS MEDICARE [facility] CHOICE PLUS Care Teams Air Conditioning Installer Relationship Specialty Start Date End Date Charmaine Dykes MD PCP - General 05/26/[address] [place] [address] [address] [place] [address] Consulting Physician Endocrinology Diabetes & Metabolism 06/01/23
--- OUTSIDE RECORDS SUMMARY | 2024-05-07 18:38 | XMS_ITS | CONTINUITY OF CARE DOCUMENT ---
Author Name sanchez bradford Address Unknown Organization [facility] Address [address] [place] [address] Phone [phone] Care Team Providers Care Physical Scientist Name Role Phone Bayron KAISER, Saulo Unavailable INSURANCE PROVIDERS Payer name Policy type / Coverage type Bladimir red democrat ID [facility] [id number]
[2024-05-07 18:40] LABS: Thyroid Stimulating Hormone 0.183 uIU/mL (0.465-4.680)
[2024-05-07 18:49] LABS: Free T4 Free Thyroxine 1.37 ng/dL (0.78-2.19)
[2024-05-07 18:49] LABS: Free T3 3.29 pg/mL (2.71-6.16)
[2024-05-08 15:44] LABS: FSH 8.6 mIU/mL; Prolactin 10.2 ng/mL
== END 2024-05-07 16:33 | disposition home or self-care (01) ==
LOC: ANHLAB 16:37
PROVIDERS: PCP Family Medicine; Visit Provider Obstetrics & Gynecology
DX: N95.1 Menopausal and female climacteric states (principal); N91.2 Amenorrhea, unspecified
CPT/HCPCS: 36415; 80053; 82670; 83001; 84146; 84439; 84443; 84481; 85025